=== PATIENT | female | born 1990 | race Caucasian/White ===

== ENCOUNTER → 2019-04-22 13:19 | Outpatient (CLI) | payer BC, SELFPAY ==
--- NOTE | ~2019-04-22 | US_ITS ---
EXAMINATION: US transvaginal DATE: 04/22/2019 13:40 INDICATION: Right lower quadrant pain. Comparison:No prior studies for comparison. TECHNIQUE: Multiple endovaginal sonographic images of the pelvis performed. FINDINGS: The uterus measures 5.8 x 2.9 x 3.9 cm. The endometrial complex measures 11 mm. The right ovary measures 2.3 x 2 x 2.5 cm and the left ovary measures 3.4 x 2.4 x 2.2 cm. There are small follicles in each ovary. There is free fluid in the left adnexa, physiologic. There are no abnormal masses seen on either side . IMPRESSION: 1. Unremarkable pelvic ultrasound. Reviewed, dictated and finalized at location A. [employer]
== END ==
PROVIDERS: PCP Physician Assistant Medical; Visit Provider Physician Assistant Medical
DX: R10.31 Right lower quadrant pain (principal)
CPT/HCPCS: 76830

== ENCOUNTER → 2019-05-10 12:12 | Outpatient (CLI) | payer BC, SELFPAY ==
--- NOTE | ~2019-05-10 | CT_ITS ---
EXAMINATION: CT abdomen pelvis w con EXAM DATE: 05/10/2019 12:57 INDICATION: Right lower quadrant pain. TECHNIQUE: Spiral CT of the abdomen and pelvis was performed following intravenous injection of 100 m L Omnipaque 350. Axial, coronal and sagittal images were reviewed. The dose-length product (DLP) fo r this examination was 1074.91 mGy-cm. The exposure was tailored according to patient size (auto mA exposure control), and iterative reconstruction (ASIR) was used as additional dose reduction techniqu e. 08/03/2016 FINDINGS: The liver, spleen, adrenal glands and pancreas are unremarkable. There are cholecystectomy clips. Portal and splenic veins are patent. Kidneys enhance symmetrically. There is no hydronephr osis. Uterus and ovaries are small but otherwise unremarkable. The bladder is collapsed at time of imaging limiting evaluation. There is no retroperitoneal or pelvic lymphadenopathy. Intact abdomi nal wall. The appendix is normal. The stomach and small bowel are unremarkable. There is expected amount of c olonic stool. No free intraperitoneal gas. The heart is normal in size. There are no pericardial or pleural effusions. The lung bases are unremarkable. The bones are unremarkable. IMPRESSION: 1. No acute intra-abdominal findings. Reviewed, dictated and finalized at location A. 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
== END ==
PROVIDERS: Visit Provider Family Medicine
DX: R10.31 Right lower quadrant pain (principal)
CPT/HCPCS: 74177; Q9967

== ENCOUNTER 2020-09-18 20:54 | Observation (INO) | payer BC, SELFPAY ==
--- NOTE | ~2020-09-18 | CT_ITS ---
EXAMINATION: CT abdomen pelvis w con DATE: 09/18/2020 23:11 INDICATION: Right lower quadrant abdominal pain TECHNIQUE: Computed tomography (CT) of the abdomen and pelvis was performed with 100 mL Omnipaque-350 intravenous contrast. Automated exposure control and iterative reconstruction technique were employe d. The dose-length product was 1480.94 mGy-cm. COMPARISON: 05/10/2019 FINDINGS: Lung bases are clear. Heart size is normal. No pericardial or pleural effusion. Cholecystectomy clips the gallbladder fossa. Diffuse hepatic steatosis. Spleen, pancreas, bilateral adrenal glands and kid neys are normal. There is mild inflammatory stranding surrounding the retrocecal appendix consistent with acute appendicitis. Bowels are otherwise normal with no obstruction. Bladder, uterus and bilater al adnexa are unremarkable. Small amount of likely physiologic versus reactive free fluid in the cul- de-sac. No abscess or free intraperitoneal gas. No pathologically enlarged abdominal or pelvic lympha denopathy. Bones are unremarkable. IMPRESSION: 1. Acute appendicitis. Dr. Burrows discussed these findings with Dr. Cho at 11:15 PM. Reviewed, dictated and finalized at location A.
[2020-09-18 21:12] VITALS: BP 187/110; PULSE 124; RESP 18; TEMP 37.7; O2SAT 100
--- NOTE | 2020-09-18 22:32 | ED.GENADULT ---
HPI - General Adult General Chief complaint: Abdominal Pain Stated complaint: RLQ abd Pain Time Seen by Provider: 09/18/20 22:08 History of Present Illness HPI narrative: Patient a 30-year-old female presents emerged part with chief complaint of abdominal pain. The patient reports that she started having pain around 6 PM tonight reports that it is sharp. The patient reports has been prior surgical history of her gallbladder being removed. Patient also reports that she has had a hernia surgery. Patient denies vomiting reports that she has chronic diarrhea patient denies dysuria or vaginal discharge. Patient states the pain is worse with movement and improved with rest Related Data Home Medications Medication Instructions Recorded Confirmed adapalene 0.3 % topical gel 1 applic TOPICAL QPM 02/19/19 imipramine HCl 10 mg tablet 50 mg PO BID 02/19/19 mometasone 2 inhalation INHALATION DAILY 02/19/19 mometasone 50 mcg/actuation nasal 2 spray NASAL DAILY 02/19/19 spray esomeprazole magnesium 40 mg 40 mg PO DAILY 05/19/20 capsule,delayed release Allergies Allergy/AdvReac Type Severity Reaction Status Date / Time prednisone Allergy Intermediate Vomiting Verified 04/16/18 22:30 doxycycline Allergy Unknown nausea/ligh Verified 03/10/17 21:20 theaded/swe ating/dizzi ness No Known Allergies Allergy Unknown Verified 09/08/16 12:29 narcotic additives AdvReac Unknown Unknown Uncoded 04/16/18 22:30 Review of Systems Review of Systems: Narrative: A 10 system review of systems was completed on the patient and is negative except for what is stated in the HPI. Nursing and ancillary documentation was reviewed. [facility] Social History Social History Smoking status: Never smoker Alcohol intake: current Substance use: never Gender identity (if verbalized by the patient): Female Spiritual care concerns: No Exam Narrative: Exam Narrative: GENERAL: Well-appearing, well-nourished, and in no acute distress. HEAD: Normocephalic, atraumatic. EYES: PERRLA and EOMI. ENT: Nares clear, no rhinorrhea or epistaxis. Mucous membranes moist. NECK: Supple. CHEST: Clear to auscultation. No respiratory distress. HEART: Regular rate and rhythm. No murmur heard. Normal peripheral pulses. ABDOMEN: Soft, tender to palpation in the right lower quadrant, nondistended, normal active bowel sounds. EXTREMITIES: Normal range of motion. No edema. SKIN: Warm, dry, no rash. NEURO: No focal deficits. Alert and oriented x3. PSYCH: Normal mood and affect. Course Vital Signs Vital signs: Vital Signs Temperature 37.7 C H 09/18/20 21:12 Pulse Rate 124 H 09/18/20 21:12 Respiratory Rate 18 09/18/20 21:12 Blood Pressure 187/110 H 09/18/20 21:12 Pulse Oximetry 100 09/18/20 21:12 Temperature 37.7 C H 09/18/20 21:12 Pulse Rate 75 09/18/20 22:46 Respiratory Rate 20 09/18/20 22:46 Blood Pressure 133/73 09/18/20 22:46 Pulse Oximetry 100 09/18/20 22:46 Medical Decision Making Vital Signs Vital Signs: Vital Signs Temperature 37.7 C H 09/18/20 21:12 Pulse Rate 124 H 09/18/20 21:12 Respiratory Rate 18 09/18/20 21:12 Blood Pressure 187/110 H 09/18/20 21:12 Pulse Oximetry 100 09/18/20 21:12 Temperature 37.7 C H 09/18/20 21:12 Pulse Rate 75 09/18/20 22:46 Respiratory Rate 20 09/18/20 22:46 Blood Pressure 133/73 09/18/20 22:46 Pulse Oximetry 100 09/18/20 22:46 Lab Data Result diagrams: 09/18/20 22:30 09/18/20 22:30 Labs: Lab Results 09/18/20 09/18/20 09/18/20 Range/Units 22:30 22:30 22:30 WBC 13.2 H (4.5-10.0) K/mm3 RBC 4.55 (4.2-5.4) M/mm3 Hgb 11.4 L (12.0-15.0) g/dL Hct 37.3 (37.0-47.0) % MCV 82.0 (80-100) fl MCH 25.1 L (26-34) pg MCHC 30.6 L (32-36) g/dl RDW 15.3 H (11.5-14.5) % Plt Count 322 (150-375) k/mm3 MPV
[2020-09-18 22:42] LABS: Add Urine Microscopic? YES; Appearance Urine Cloudy (Clear); Bacteria Urine Trace /hpf; Bilirubin Urine Negative (Negative); Blood Urine Negative (Negative); Color Urine Yellow (Yellow); Glucose Urine UA Negative (Negative); Ketones Urine Trace mg/dL (Negative); Leukocyte Esterase Ur Negative LEU/UL (Negative); Mucus Urine Rare /lpf; Nitrate Urine Negative (Negative); Protein Urine Negative (Negative); RBC Urine 0-2 /hpf (0-2); Specific Grav Ur 1.019 (1.001-1.035); Squamous Epithelial Cell Urine Many /hpf (Few); Urobilinogen Urine Negative mg/dL (<2.0); WBC Urine 0-3 /hpf
[2020-09-18] MEDS: SODIUM CHLORIDE 0.9% IV 1,000 ML 999 ML IV CONT (22:43)
[2020-09-18] MEDS: ONDANSETRON INJ 4 MG/2 ML VIAL IV PUSH (22:43)
[2020-09-18 22:44] LABS: Basophils Absolute Auto 0.1 K/mm3 (0.0-0.1); Basophils Percent Auto 0.5 % (0.2-1.2); Eosinophils Absolute Auto 0.1 K/mm3 (0-0.3); Eosinophils Percent Auto 0.4 % (0-4.4); Hematocrit 37.3 % (37.0-47.0); Hemoglobin 11.4 g/dL (12.0-15.0); Immature Granulocyte Absolute 0.06 K/mm3 (0.00-0.031); Immature Granulocyte Percent A 0.5 % (0-0.5); Lymphocytes Absolute Auto 1.85 K/mm3 (0.9-3.2); Mean Corpuscular HGB Conc 30.6 g/dl (32-36); Mean Corpuscular Hemoglobin 25.1 pg (26-34); Mean Platelet Volume 10.7 fl (7.4-10.4); Monocytes Absolute Auto 0.7 K/mm3 (0.1-0.6); Monocytes Percent Auto 4.9 % (2.6-8.5); Neutrophils Absolute Auto 10.5 K/mm3 (1.3-6.7); Neutrophils Percent Auto 79.7 % (45.5-73.1); Platelet Count Result 322 k/mm3 (150-375); Red Blood Count 4.55 M/mm3 (4.2-5.4); Red Cell Distribution Width 15.3 % (11.5-14.5); White Blood Count 13.2 K/mm3 (4.5-10.0)
[2020-09-18] MEDS: KETOROLAC 30 MG/ML VIAL (*BKC) IV PUSH (22:44)
[2020-09-18 22:46] VITALS: BP 133/73; PULSE 75; RESP 20; O2SAT 100
[2020-09-18 22:49] LABS: Alanine Aminotransferase 44 U/L (4-35); Albumin Level 4.6 g/dL (3.5-5.1); Alkaline Phosphatase 88 U/L (38-126); Anion Gap 10 mmol/L (8-16); Aspartate Amino Transferase 31 U/L (14-36); Bilirubin,Total 0.5 mg/dL (0.2-1.3); Blood Urea Nitrogen 11 mg/dL (7-17); Calcium 9.8 mg/dL (8.4-10.2); Carbon Dioxide 27 mmol/L (22-30); Chloride 102 mmol/L (98-107); Estimated CRCL calculation 98 ml/min; Estimated Glomerular Filt Rate > 60; Glucose 103 mg/dL (65-110); Lipase 84 U/L (23-300); Potassium 3.8 mmol/L (3.4-5.0); Sodium 139 mmol/L (137-145)
[2020-09-19] VITALS (13 sets, daily range): BP systolic 101–145; BP diastolic 48–82; PULSE 71–98; RESP 16–22; TEMP 36.2–36.6; O2SAT 94–100; BMI 45.3
--- NOTE | 2020-09-19 00:55 | ADMGEN ---
This patient, Sasha Reagan, was admitted to Medical Room 253-01. Patient/family oriented to hospital policies and general routines including ID bracelet, bed and alarms, visiting hours, pain management, procedures, bathroom and other care routines, personal items, smoking policy, room service/diet, and visiting hours. Information on how to activate the Rapid Response Team has been discussed. Patient/Family are encouraged to report perceived risks to care and to ask questions if they do not understand what they are told or what they should do.
[2020-09-19] MEDS: SODIUM CHLORIDE 0.9% IV 1,000 ML 125 ML IV CONT (01:23)
--- NOTE | 2020-09-19 06:27 | PM.IMHP ---
H&P: HPI History of Present Illness Date/Time: 09/19/20 06:27 Patient is a 30-year-old woman who started having abdominal pain last night in the early evening around 530 or 6. The pain was sharp and persistent. She is had a previous cholecystectomy. Patient had an open umbilical hernia repair without mesh by me in September of 2016. I also had performed a laparoscopic cholecystectomy on the patient in the past. She was noted to have right lower quadrant tenderness in the emergency room. [place] [id number]. [place] scan showed evidence of a retrocecal appendix and acute appendicitis. She has been started on IV antibiotics and admitted now for evaluation and further management. Review of her medical records so she has morbid obesity with BMI of 45, chronic asthma, gastroesophageal reflux disease on Nexium, and hypothyroidism. Chief Complaint: right lower quadrant abdominal pain Review of Systems Review of Systems: All systems reviewed & are unremarkable except as noted in HPI and below Constitutional: Constitutional: Reports as per HPI, Denies body ache(s), Denies chills, Denies fever(s) and Denies headache(s) Cardiovascular: Cardiovascular: Denies chest pain and Denies dyspnea Respiratory: Respiratory: Denies cough and Denies dyspnea Gastrointestinal: Gastrointestinal: Reports as per HPI, Reports abdominal pain, Reports diarrhea ( Chronic), Denies nausea and Denies vomiting Neurologic: Denies confusion and Denies headache(s) [facility] Family History Family History Other Unknown family medical history Social History Social History Smoking status: Never smoker Alcohol intake: current Drinks per week: 2 Substance use: never Substance use type: does not use Gender identity (if verbalized by the patient): Female Spiritual care concerns: No Meds Home Medications and Allergies Home Medications Medication Instructions Recorded Confirmed Type mometasone 2 inhalation INHALATION HS 02/19/19 09/19/20 History mometasone 50 mcg/actuation nasal 2 spray NASAL HS 02/19/19 09/19/20 History spray salmeterol 50 mcg/dose blister 1 inhalation INHALATION Q12H 90 02/19/19 09/19/20 Rx powder for inhalation Days #3 each esomeprazole magnesium 40 mg 40 mg PO DAILY 05/19/20 09/19/20 History capsule,delayed release albuterol sulfate 90 mcg/actuation 2 puff INHALATION Q4H PRN #18 gm 08/06/20 09/19/20 Rx aerosol inhaler escitalopram oxalate 20 mg PO DAILY 09/19/20 09/19/20 History ibuprofen 200 mg PO Q6H PRN 09/19/20 09/19/20 History levothyroxine 112 mcg PO HS 09/19/20 09/19/20 History loratadine-pseudoephedrine 1 tablet PO DAILY 09/19/20 09/19/20 History [Claritin-D 24 Hour] magnesium 250 mg PO HS 09/19/20 09/19/20 History Allergies Allergy/AdvReac Type Severity Reaction Status Date / Time prednisone Allergy Intermediate Vomiting Verified 09/19/20 01:33 doxycycline Allergy Unknown nausea/ligh Verified 09/19/20 01:33 theaded/swe ating/dizzi ness narcotic additives AdvReac Unknown Unknown Uncoded 04/16/18 22:30 Vital Signs Vital Signs - 24 hr 09/18/20 21:12 09/18/20 22:46 09/19/20 00:40 Temperature 37.7 C H Pulse Rate 124 H 75 98 Respiratory Rate 18 20 16 Blood Pressure 187/110 H 133/73 141/77 H Pulse Oximetry 100 100 99 09/19/20 01:26 09/19/20 05:39 Temperature 36.6 C 36.6 C Pulse Rate 76 78 Respiratory Rate 16 16 Blood Pressure 143/82 H 145/76 H Pulse Oximetry 100 99 Exam Const: General: cooperative, no acute distress, alert and awake Nutritional Appearance: obese Orientation/consciousness: patient oriented x3 HENMT: Head: normocephalic and atraumatic Mouth: Yes Normal oral and palatal mucosa present Eyes: Conjunctivae: conjunctivae normal Pupils: Equal, round and reactive pupils present EOM: EOMs intact bilaterally Neck: Neck: normal visual
--- NOTE | 2020-09-19 07:40 | WPDHPUPDATE1 ---
History and Physical Update Update Date/Time: 09/19/20 07:40 History and Physical has been reviewed, including an updated exam of the patient. There are NO changes in the patient's condition. Risks, benefits, and alternatives have been discussed and questions answered. Patient agrees to proceed with procedure.
--- NOTE | 2020-09-19 08:12 | WPDANESEPPF ---
Anes - Initial Pre Proc Eval Procedure: Operation Date: 09/19/20 10:00 Proposed Procedures p Laparoscopic Appendectomy - Rogelio Candelaria MD Date/Time: 09/19/20 08:12 Surgeon: Rogelio Candelaria MD Pre Op Diagnosis: Acute appendicitis Patient Data Age: 30 Gender: F Height: 1.65 m Weight: 123.8 kg Last Vital Signs Temp 36.6 C 09/19/20 05:39 Pulse 78 09/19/20 05:39 Resp 16 09/19/20 05:39 BP 145/76 H 09/19/20 05:39 Pulse Ox 99 09/19/20 05:39 Allergies Allergy/AdvReac Type Severity Reaction Status Date / Time prednisone Allergy Intermediate Vomiting Verified 09/19/20 01:33 doxycycline Allergy Unknown nausea/ligh Verified 09/19/20 01:33 theaded/swe ating/dizzi ness narcotic additives AdvReac Unknown Unknown Uncoded 04/16/18 22:30 Home Medications Medication Instructions Recorded Confirmed Type mometasone 2 inhalation INHALATION HS 02/19/19 09/19/20 History mometasone 50 mcg/actuation nasal 2 spray NASAL HS 02/19/19 09/19/20 History spray salmeterol 50 mcg/dose blister 1 inhalation INHALATION Q12H 90 02/19/19 09/19/20 Rx powder for inhalation Days #3 each esomeprazole magnesium 40 mg 40 mg PO DAILY 05/19/20 09/19/20 History capsule,delayed release albuterol sulfate 90 mcg/actuation 2 puff INHALATION Q4H PRN #18 gm 08/06/20 09/19/20 Rx aerosol inhaler escitalopram oxalate 20 mg PO DAILY 09/19/20 09/19/20 History ibuprofen 200 mg PO Q6H PRN 09/19/20 09/19/20 History levothyroxine 112 mcg PO HS 09/19/20 09/19/20 History loratadine-pseudoephedrine 1 tablet PO DAILY 09/19/20 09/19/20 History [Claritin-D 24 Hour] magnesium 250 mg PO HS 09/19/20 09/19/20 History Laboratory Tests 09/18/20 09/18/20 09/18/20 22:30 22:30 22:30 WBC 13.2 K/mm3 H K/mm3 (4.5-10.0) RBC 4.55 M/mm3 M/mm3 (4.2-5.4) Hgb 11.4 g/dL L g/dL (12.0-15.0) Hct 37.3 % % (37.0-47.0) MCV 82.0 fl fl (80-100) MCH 25.1 pg L pg (26-34) MCHC 30.6 g/dl L g/dl (32-36) RDW 15.3 % H % (11.5-14.5) Plt Count 322 k/mm3 k/mm3 (150-375) MPV 10.7 fl H fl (7.4-10.4) Immature Gran % (Auto) 0.5 % % (0-0.5) Neut % (Auto) 79.7 % H % (45.5-73.1) Lymph % (Auto) 14.0 % L % (18.3-44.2) [place] % (Auto) 4.9 % % (2.6-8.5) Eos % (Auto) 0.4 % % (0-4.4) Baso % (Auto) 0.5 % % (0.2-1.2) Lymph # (Auto) 1.85 K/mm3 K/mm3 (0.9-3.2) [place] # (Auto) 0.7 K/mm3 H K/mm3 (0.1-0.6) Eos # (Auto) 0.1 K/mm3 K/mm3 (0-0.3) Baso # (Auto) 0.1 K/mm3 K/mm3 (0.0-0.1) Abs Immat Gran (auto) 0.06 K/mm3 H K/mm3 (0.00-0.031) Absolute Neuts (auto) 10.5 K/mm3 H K/mm3 (1.3-6.7) Absolute Nucleated RBC 0.0 K/mm3 K/mm3 (0.0-0.012) Nucleated RBC % 0.0 % % (0.0-0.2) Sodium 139 mmol/L mmol/L (137-145) Potassium 3.8 mmol/L mmol/L (3.4-5.0) Chloride 102 mmol/L mmol/L (98-107) Carbon Dioxide 27 mmol/L mmol/L (22-30) Anion Gap 10 mmol/L mmol/L (8-16) BUN 11 mg/dL mg/dL (7-17) Creatinine 1.00 mg/dL mg/dL (0.7-1.0) Estim Creat Clear Calc 98 ml/min ml/min Estimated GFR > 60 (59 - ) Glucose 103 mg/dL mg/dL (65-110) Calcium 9.8 mg/dL mg/dL (8.4-10.2) Total Bilirubin 0.5 mg/dL mg/dL (0.2-1.3) AST 31 U/L U/L (14-36) ALT 44 U/L H U/L (4-35) Alkaline Phosphatase 88 U/L U/L (38-126) Total Protein 8.0 g/dL g/dL (6.3-8.2) Albumin 4.6 g/dL g/dL (3.5-5.1) Lipase 84 U/L U/L (23-300) Urine Color Yellow (Yellow) Urine Appearance Cloudy H (Clear) Urine pH 6.0 (5.0-9.0) Ur Specific [place] 1.019 (1.001-1.035) Urine Protein Negative mg/dL mg/dL
[2020-09-19] MEDS: LACTATED RINGERS 1,000 ML 30 ML IV CONT ×2 (09:00→09:58)
[2020-09-19] MEDS: BUPIVACAINE/EPINEPHRINE 0.5% 30 ML VIAL INFILTRATE (09:39)
--- NOTE | 2020-09-19 09:56 | P.OP_ITS ---
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 The pain was persistent and sharp. She went to the emergency room where evaluation showed evidence of acute appendicitis. She is taken to surgery now for laparoscopic appendectomy. Findings Acute non perforated appendicitis Description of Procedure patient was taken to surgery and general anesthesia was introduced. The abdomen was prepped and draped. Trocars were placed in the usual fashion using 0.5% Marcaine with epinephrine and applied Medical optical trocars. A 5 mm camera was used. After insufflation, the patient was placed in Trendelenburg with the right side elevated. The appendix was found fairly easily. It was elevated anteriorly and the mesoappendix exposed. Dissection in the mesoappendix was carried out. The appendiceal artery was dissected and then thoroughly cauterized and divided. Rest of the mesoappendix was divided in the base of the appendix was skeletonized. A Vicryl endoloop was used to ligate the appendix at its base. The appendix was then amputated just above the ligature and the mucosa of the appendiceal stump was cauterized. The appendix was immediately placed in an Endo-Catch bag and retrieved through the 10 11 left lower quadrant trocar site. The trocar was then replaced. We reviewed the areas of dissection in the right lower quadrant. All looked good with no evidence of bleeding or other problems. We evacuated CO2 and removed the trocar sleeves. Skin wounds were closed with subcuticular 4 O Monocryl skin suture. Wounds were dressed with Exofin surgical adhesive. Sponge and needle counts were correct x2. Estimated Blood Loss 5 Urine Output 400 Drains No Packing No Pathology yes ( Acute non perforated appendicitis) Complications None Condition stable Disposition PACU
--- NOTE | 2020-09-19 10:06 | PM.DS ---
DS: Admitting Diagnosis Admitting Diagnosis Admitting Diagnosis: acute appendicitis DS: Discharge Diagnosis Discharge Diagnosis (1) Acute appendicitis: Qualifiers: Acute appendicitis type: unspecified acute appendicitis type Qualified Code(s): K35.80 - Unspecified acute appendicitis Code(s): K35.80 - Unspecified acute appendicitis Status: Acute DS: Summary Hospital Course Hospital Course: patient developed right lower quadrant abdominal pain night before last. She came to the emergency room and was evaluated. She was noted to have an elevated white count and tenderness in the right lower quadrant. CT scan showed evidence of acute appendicitis. She was taken to surgery on 09/19/2020 and laparoscopic appendectomy was performed. Appendix appeared to have acute non perforated appendicitis. Surgery went well and patient was able to be discharged after period of observation. Status at Discharge Functional status at discharge: independent ambulation Overall status at discharge: patient is progressing back to baseline Time Spent with Patient Time attestation: Total time spent providing and/or coordinating discharge services: DS: Data Data Completed and Pending Pending studies at discharge: Pending at discharge 09/19/20 09:41 Surgical [PTH] Routine Labs on day of discharge: Labs from last 24 hours 09/18/20 09/18/20 09/18/20 22:30 22:30 22:30 WBC 13.2 H RBC 4.55 Hgb 11.4 L Hct 37.3 MCV 82.0 MCH 25.1 L MCHC 30.6 L RDW 15.3 H Plt Count 322 MPV 10.7 H Immature Gran % (Auto) 0.5 Neut % (Auto) 79.7 H Lymph % (Auto) 14.0 L [place] % (Auto) 4.9 Eos % (Auto) 0.4 Baso % (Auto) 0.5 Lymph # (Auto) 1.85 [place] # (Auto) 0.7 H Eos # (Auto) 0.1 Baso # (Auto) 0.1 Abs Immat Gran (auto) 0.06 H Absolute Neuts (auto) 10.5 H Absolute Nucleated RBC 0.0 Nucleated RBC % 0.0 Sodium 139 Potassium 3.8 Chloride 102 Carbon Dioxide 27 Anion Gap 10 BUN 11 Creatinine 1.00 Estim Creat Clear Calc 98 Estimated GFR > 60 Glucose 103 Calcium 9.8 Total Bilirubin 0.5 AST 31 ALT 44 H Alkaline Phosphatase 88 Total Protein 8.0 Albumin 4.6 Lipase 84 Urine Color Yellow Urine Appearance Cloudy H Urine pH 6.0 Ur Specific [place] 1.019 Urine Protein Negative Urine Glucose (UA) Negative Urine Ketones Trace Ur Blood (Man) Negative Urine Nitrate Negative Urine Bilirubin Negative Urine Urobilinogen Negative Leukocyte Esterase Rfl Negative Urine RBC 0-2 Urine WBC 0-3 Ur Squamous Epith Cells Many H Urine Bacteria Trace Urine Mucus Rare Discharge Plan Discharge Attending physician on discharge: Rogelio Candelaria Discharging Clinician: Rogelio Candelaria Anticipated Discharge Date/Time: 09/19/20 16:00 Patient Disposition: Home, Self-Care Activity: may shower, no straining and as tolerated Diet: as tolerated and regular Wound Care Instructions: incision open to air Discharge Instructions: Remove the Scopolamine patch that was placed behind your ear in 72 hours or less. Wash your hands after touching.1. May shower the day after surgery over incisions. 2. Call office for: -Wound increasingly painful or bleeding -Vomiting -Fever of greater than 101 degrees 3. Expect some blood on dressing and old blood on skin. 4. If no bowel movement for three days, take 1 oz. (30 ml) Milk of Magnesia, if no results, take Fleets enema. 5. No heavy lifting > 15-20 pounds for 2 weeks. 6. No driving for 3 days or while taking narcotic pain medications. 7. Up walking 10-30 minutes three times per day. 8. Resume previous home medications. 9. Follow-up 10-14 days in office for wound check or as previously scheduled. 10. Oral pain medications prescripti
[2020-09-19] MEDS: ESCITALOPRAM OXALATE 10 MG TABLET 20 MG PO (11:18)
[2020-09-19] MEDS: PANTOPRAZOLE 40 MG TABLET PO (11:19)
[2020-09-19] MEDS: LACTATED RINGERS 1,000 ML 100 ML IV CONT (11:23)
[2020-09-19] MEDS: LORATADINE/PSEUDOEPHEDRINE (*CRX) 10/240 MG TABLET ER 24 HR 1 TAB PO (11:23)
== END 2020-09-19 15:00 | disposition home or self-care (01) ==
LOC: ANHED 23:24 → ANH2MED 23:37
PROVIDERS: Admitting Provider Surgery; Emergency Provider Emergency Medicine; PCP Family Medicine; Visit Provider Surgery
PROC: 0DTJ4ZZ Resection of Appendix, Percutaneous Endoscopic Approach (ICD-10-PCS; CPT 44970; principal; 2020-09-19 10:00)
DX: C18.1 Malignant neoplasm of appendix (principal); K35.30 Acute appendicitis with localized peritonitis, without perforation or gangrene; J45.909 Unspecified asthma, uncomplicated; E03.9 Hypothyroidism, unspecified; K21.9 Gastro-esophageal reflux disease without esophagitis; F41.8 Other specified anxiety disorders; E66.01 Morbid (severe) obesity due to excess calories; Z68.42 Body mass index [BMI] 45.0-49.9, adult; Z79.51 Long term (current) use of inhaled steroids
CPT/HCPCS: 44970; 36415; 74177; 80053; 81001; 81025; 83690; 85025; 88304; 88342; 96361; 96365; 96366; 96375; 99285; A9270; G0378; J1885; J2250; J2405; J2543; J3010; J7030; J7120; Q9967

== ENCOUNTER 2020-11-27 10:26 | Outpatient (CLI) | payer BC, SELFPAY ==
--- NOTE | 2020-11-27 10:30 | ECG_ITS ---
Measurements Intervals [place] Rate: 83 P: 19 OK: 145 QRS: 37 QRSD: 85 T: 38 QT: 330 QTc: 389 Interpretive Statements SINUS RHYTHM BASELINE ARTIFACT- I, II, III, AVR, AVL, AVF NORMAL ECG Electronically Signed On 11-27-2020 10:50:33 CDT by Adis Corey D.O.
[2020-11-27 10:53] LABS: Hematocrit 41.2 % (37.0-47.0); Hemoglobin 13.1 g/dL (12.0-15.0)
== END 2020-11-27 10:27 | disposition home or self-care (01) ==
LOC: ANHSURGERY 10:29
PROVIDERS: Anesthesiology; PCP Family Medicine; Visit Provider Surgery
DX: Z01.818 Encounter for other preprocedural examination (principal); D3A.8 Other benign neuroendocrine tumors; D64.9 Anemia, unspecified
CPT/HCPCS: 36415; 85014; 85018; 86850; 86900; 86901; 93005

== ENCOUNTER 2020-12-02 11:43 | Inpatient (IN) | payer BC, SELFPAY ==
[2020-10-28 08:27] VITALS: BMI 47.2
[2020-11-24 12:03] VITALS: BMI 44.6
--- NOTE | 2020-11-30 17:02 | PM.IMHP ---
H&P: HPI History of Present Illness Date/Time: 11/30/20 17:02 Sasha Reagan is a 30 year old female who presented with acute appendicitis on September 18, 2020. She underwent laparoscopic appendectomy on 09/19/2020. 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 The tumor had focal involvement of the visceral peritoneal surface. The margins were negative. The neoplastic cells invaded the mesoappendix and focally extend to the serosal margin. The tumor is a T4 NX MX tumor. This case was reviewed at the tumor board. Plans were to proceed with hand access laparoscopic right colectomy. This surgery has been somewhat delayed due to the high census and COVID pandemic. Patient is however taken to surgery on 12/02/2020 for hand access laparoscopic right colectomy. 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 Review of Systems Review of Systems: All systems reviewed & are unremarkable except as noted in HPI and below Constitutional: Constitutional: Denies chills and Denies fever(s) Cardiovascular: Cardiovascular: Denies chest pain, Denies diaphoresis, Denies dyspnea and Denies paroxysmal nocturnal dyspnea Respiratory: Respiratory: Denies chest congestion, Denies cough and Denies dyspnea Integumentary/Breasts: Skin/Breast: Denies lesions and Denies rash PMFSH Past Medical History Medical History Anxiety associated with depression Encounter for surgical aftercare following surgery on the digestive system HTN (hypertension) Hypothyroid Surgical History Surgical History History of appendectomy 7.16.21 Family History Family History Other Unknown family medical history Social History Social History Smoking status: Never smoker Alcohol intake: current Drinks per week: 2 Substance use: never Substance use type: does not use Gender identity (if verbalized by the patient): Female Spiritual care concerns: No Meds Home Medications and Allergies Home Medications Medication Instructions Recorded Confirmed Type mometasone 2 inhalation INHALATION PRN PRN 02/19/19 11/24/20 History mometasone 50 mcg/actuation nasal 2 spray NASAL PRN PRN 02/19/19 11/24/20 History spray esomeprazole magnesium 40 mg 40 mg PO DAILY 05/19/20 11/24/20 History capsule,delayed release albuterol sulfate 90 mcg/actuation 2 puff INHALATION Q4H PRN #18 gm 08/06/20 11/24/20 Rx aerosol inhaler escitalopram oxalate 20 mg PO DAILY 09/19/20 11/24/20 History levothyroxine 112 mcg PO HS 09/19/20 11/24/20 History loratadine-pseudoephedrine 1 tablet PO DAILY 09/19/20 11/24/20 History [Claritin-D 24 Hour] magnesium 250 mg PO HS 09/19/20 11/24/20 History acetaminophen 325 mg tablet 325 mg PO Q6H PRN 10/05/20 11/24/20 History Serevent Diskus 1 inhalation INHALATION PRN PRN 10/28/20 11/24/20 History ferrous sulfate [Iron (ferrous 325 mg PO HS 10/28/20 11/24/20 History sulfate)] erythromycin 500 mg tablet 1 g PO .COMPLEX #6 tablet 11/30/20 Rx neomycin 500 mg tablet 1 g PO .COMPLEX #6 tablet 11/30/20 Rx Allergies Allergy/AdvReac Type Severity Reaction Status Date / Time prednisone Allergy Intermediate Vomiting Verified 11/24/20 12:01 doxycycline Allergy Unknown Unknown Verified 11/24/20 12:01 narcotic additives AdvReac Unknown Nausea and Uncoded 11/24/20 12:01 Vomiting/dizzy Exam Const: General: comfortable, no acute distress, alert and awake Nutritional Appearance: obese Orientation/consciousness: patient oriented x3 Limitations: no limitations HENMT: Head: normocephalic and atraumatic Mouth: Yes Normal oral and palatal mucosa present Eyes: Conjunctivae: conjunctivae normal Pupils: Equal, round and reactive pupils present EOM: EOMs i
[2020-12-02] VITALS (13 sets, daily range): BP systolic 112–145; BP diastolic 47–84; PULSE 90–116; RESP 17–22; TEMP 36.3–37.2; O2SAT 92–100
--- NOTE | 2020-12-02 06:52 | WPDANESEPPF ---
Anes - Initial Pre Proc Eval Procedure: Operation Date: 12/02/20 07:30 Proposed Procedures p Hand Assisted Laparoscopic Right Colectomy - Rogelio Candelaria MD Date/Time: 12/02/20 06:52 Surgeon: Rogelio Candelaria MD Pre Op Diagnosis: neuroendocrine cancer of appendix Patient Data Age: 30 Gender: F Height: 1.63 m Weight: 117.9 kg Allergies Allergy/AdvReac Type Severity Reaction Status Date / Time doxycycline Allergy Unknown Unknown Verified 12/02/20 06:47 prednisone AdvReac Intermediate Vomiting Verified 12/02/20 06:47 narcotic additives AdvReac Unknown Nausea and Uncoded 12/02/20 06:47 Vomiting/dizzy Home Medications Medication Instructions Recorded Confirmed Type mometasone 2 inhalation INHALATION PRN PRN 02/19/19 11/24/20 History mometasone 50 mcg/actuation nasal 2 spray NASAL PRN PRN 02/19/19 11/24/20 History spray esomeprazole magnesium 40 mg 40 mg PO DAILY 05/19/20 12/02/20 History capsule,delayed release albuterol sulfate 90 mcg/actuation 2 puff INHALATION Q4H PRN #18 gm 08/06/20 12/02/20 Rx aerosol inhaler escitalopram oxalate 20 mg PO DAILY 09/19/20 12/02/20 History levothyroxine 112 mcg PO HS 09/19/20 12/02/20 History loratadine-pseudoephedrine 1 tablet PO DAILY 09/19/20 12/02/20 History [Claritin-D 24 Hour] magnesium 250 mg PO HS 09/19/20 11/24/20 History acetaminophen 325 mg tablet 325 mg PO Q6H PRN 10/05/20 12/02/20 History Serevent Diskus 1 inhalation INHALATION PRN PRN 10/28/20 11/24/20 History ferrous sulfate [Iron (ferrous 325 mg PO HS 10/28/20 12/02/20 History sulfate)] erythromycin 500 mg tablet 1 g PO .COMPLEX #6 tablet 11/30/20 Rx neomycin 500 mg tablet 1 g PO .COMPLEX #6 tablet 11/30/20 Rx Patient hx anesthesia problems: none Family hx anesthesia problems: none Results Review: All pre-operative results and documents have been reviewed as part of the pre-operative evaluation. [facility] Past Medical History Medical History Anxiety associated with depression Encounter for surgical aftercare following surgery on the digestive system HTN (hypertension) Hypothyroid Surgical History Surgical History History of appendectomy 09.18.20 Family History Family History Other Unknown family medical history Social History Social History Smoking status: Never smoker Alcohol intake: current Drinks per week: 2 Substance use: never Substance use type: does not use Living arrangements: with family Gender identity (if verbalized by the patient): Female Spiritual care concerns: No Anes - Eval Final PreProcedure Day of Procedure 12/02/20 06:52 Patient weight: morbidly obese Heart: regular rate and rhythm Lungs: clear to auscultation Airway: Mallampati scale class II Neurological: alert and oriented Last oral intake: >/= 8 hours ASA classification: III Emergent: no Anesthetic plan: proceed Anesthesia type and monitoring: general ETT and standard monitoring Results Review: All pre-operative results and documents have been reviewed as part of the pre-operative evaluation. Informed Consent: The patient's anesthetic plan and its attendant risks and benefits were discussed with the patient/family/POA. Questions were solicited and answers provided to the satisfaction of the patient/family/POA.
[2020-12-02] MEDS: KETOROLAC 15 MG/ML VIAL (*BKC) IV PUSH (07:00)
[2020-12-02] MEDS: ALVIMOPAN 12 MG CAPSULE PO (07:00)
[2020-12-02] MEDS: ACETAMINOPHEN 500 MG TABLET 1000 MG PO (07:00)
[2020-12-02] MEDS: LACTATED RINGERS 1,000 ML 30 ML IV CONT ×2 (07:00→10:34)
[2020-12-02] MEDS: SCOPOLAMINE 1.5 MG PATCH TRANSDERM (07:17)
--- NOTE | 2020-12-02 07:22 | WPDHPUPDATE1 ---
History and Physical Update Update Date/Time: 12/02/20 07:22 History and Physical has been reviewed, including an updated exam of the patient. There are NO changes in the patient's condition. Risks, benefits, and alternatives have been discussed and questions answered. Patient agrees to proceed with procedure.
[2020-12-02] MEDS: metroNIDAZOLE 500 MG/ISO 100ML 500 MG/100 ML BAG 100 MG IVPB (07:27)
[2020-12-02] MEDS: ceFAZolin 3 GM/D5W 100 ML 100 ML IVPB (07:27)
[2020-12-02] MEDS: BUPIVACAINE HCL 0.25% PF 30 ML VIAL INFILTRATE (08:08)
--- NOTE | 2020-12-02 10:33 | W.PM.PROC2 ---
Procedure Note - Detailed Date of Procedure 12/02/20 Pre-op Diagnosis neuroendocrine cancer of appendix Post-op Diagnosis same Procedure Performed Hand access laparoscopic right colectomy with hand-sewn ileotransverse anastomosis Surgeon Rogelio Candelaria MD Director Statistical Programming Araseli De Anda GRAB JACK MAN GRAB JACK MAN Anesthesia general and local (0.5% Marcaine plain) Indications Patient had acute appendicitis last September. Pathology showed a 2 cm neuroendocrine tumor of the appendix. This was a T4 lesion. She is taken to surgery now for right colectomy. Findings No gross evidence of malignancy or metastatic disease was noted. Description of Procedure Patient was taken to surgery and induced into general anesthesia. The abdomen is prepped and draped. The hand access port was drawn on the skin in the upper midline just above the umbilicus. Local was infiltrated in the area of the anticipated incision and in the subcutaneous. Incision was made deepened through the subcutaneous down to the midline fascia. Additional local was infiltrated throughout the fascia. The fascia was then opened the length of the wound. The peritoneum was opened and the peritoneal cavity entered. We placed the Leroy wound guard. The GelPort was then placed. With the hand in the abdomen, I infiltrated additional local for a trocar in the right lower quadrant. Incision was made and a 5 mm trocar was placed. We insufflated through this trocar and then placed the laparoscopic camera. Under direct visualization another 5 mm port in the left mid abdomen was placed again using local anesthetic. The patient was placed in Trendelenburg with the right-side elevated. The distal ileum and cecum were exposed. No sign of malignancy was noted. We scored the base of the mesentery to the distal ileum using the LigaSure. The LigaSure was used for virtually all the dissection and hemostasis throughout the surgery. We then carefully dissected in the retroperitoneum. A medial to lateral mesenteric dissection was carried out just over the right kidney and also above the duodenum. Once this dissection had been carried out to the transverse colon mesentery, I then exposed the mesentery to the distal ileum where the proximal line of resection was planned. The LigaSure was used to open the mesentery to the distal ileum. We divided this mesentery up to the area of the distal ileum planning to take several cm of the terminal ileum with the specimen. We then divided did additional mesentery near its base. The ileocolic artery was found and carefully dissected free from the fatty tissue of the mesentery. The ileocolic artery was then divided near its base with the LigaSure. From there, I dissected and divided the ascending colon mesentery up to the area of the hepatic flexure. The lateral transverse attachments of the ascending colon were then divided using the LigaSure. We proceeded up to the hepatic flexure. The transverse colon mesentery at the hepatic flexure was divided with the LigaSure. There were adhesions of the hepatic colic ligament to the gallbladder fossa. These were divided with the LigaSure as well. The hepatic flexure was further mobilized taking the proximal aspect of the greater omentum with the proximal transverse colon. We continued dissection of the transverse colon mesentery and divided the the right branch of the middle colic artery. From there we stopped insufflation and removed the GelPort leaving the Leroy wound guard in place. I was able to be eviscerated the cecum, distal ileum, all of the right colon and proximal transverse colon as well as nearly all the omentum out the hand access port. I divided a bit more of the proximal transverse colon mesentery up to the area of the transverse colon. I then divided the greater omentum so that the omentum associated with the proximal transverse colon would go with the specimen. The proximal transverse colon was then divided with a TLC 75 stapler. This stap
--- NOTE | 2020-12-02 12:06 | PC.NURSE ---
This patient, Sasha Reagan, was admitted to 2 Medical Room 259-01. Patient/family oriented to hospital policies and general routines including ID bracelet, bed and alarms, visiting hours, pain management, procedures, bathroom and other care routines, personal items, smoking policy, room service/diet, and visiting hours. Information on how to activate the Rapid Response Team has been discussed. Patient/Family are encouraged to report perceived risks to care and to ask questions if they do not understand what they are told or what they should do.
[2020-12-02] MEDS: LACTATED RINGERS 1,000 ML 80 ML IV CONT ×2 (12:15→21:58)
[2020-12-02] MEDS: HYDROcodone/acetaminophen (*CRX) 10-325 MG TABLET 1 TAB PO ×2 (16:58→21:51)
[2020-12-02] MEDS: ENOXAPARIN 30 MG/0.3 ML SYRINGE SUB-Q (21:51)
[2020-12-02] MEDS: LEVOTHYROXINE SODIUM 112 MCG TABLET PO (21:52)
[2020-12-03] MEDS: HYDROcodone/acetaminophen (*CRX) 10-325 MG TABLET 1 TAB PO ×2 (04:03→16:46)
[2020-12-03 04:32] VITALS: BP 130/91; PULSE 103; RESP 20; TEMP 36.1; O2SAT 94
[2020-12-03 05:42] LABS: Hematocrit 35.1 % (37.0-47.0); Mean Corpuscular HGB Conc 31.3 g/dl (32-36); Mean Corpuscular Hemoglobin 27.2 pg (26-34); Mean Corpuscular Volume 86.9 fl (80-100); Mean Platelet Volume 10.5 fl (7.4-10.4); Platelet Count Result 247 k/mm3 (150-375); Red Blood Count 4.04 M/mm3 (4.2-5.4); White Blood Count 8.6 K/mm3 (4.5-10.0)
[2020-12-03 06:02] LABS: Anion Gap 9 mmol/L (8-16); Blood Urea Nitrogen 12 mg/dL (7-17); Calcium 8.8 mg/dL (8.4-10.2); Carbon Dioxide 24 mmol/L (22-30); Chloride 105 mmol/L (98-107); Estimated CRCL calculation 118 ml/min; Estimated Glomerular Filt Rate > 60; Glucose 98 mg/dL (65-110); Potassium 3.9 mmol/L (3.4-5.0); Sodium 138 mmol/L (137-145)
[2020-12-03] MEDS: PANTOPRAZOLE 40 MG TABLET PO (08:41)
[2020-12-03] MEDS: LORATADINE/PSEUDOEPHEDRINE (*CRX) 10/240 MG TABLET ER 24 HR 1 TAB PO (08:48)
[2020-12-03] MEDS: ENOXAPARIN 30 MG/0.3 ML SYRINGE SUB-Q ×2 (09:38→20:18)
[2020-12-03] MEDS: HYDROcodone/acetaminophen (*CRX) 5-325 MG TABLET 1 TAB PO (09:38)
[2020-12-03] MEDS: ESCITALOPRAM OXALATE 10 MG TABLET 20 MG PO (09:38)
[2020-12-03] MEDS: LACTATED RINGERS 1,000 ML 80 ML IV CONT ×2 (09:38→22:15)
--- NOTE | 2020-12-03 10:20 | WPDANESPN ---
Anes - Prog Note Post-Op Date/Time: 12/03/20 10:20 Cardiovascular status: normal Respiratory status: normal Airway patency: baseline Mental status: baseline Post-Op hydration status: normal Vital Signs: Last Vital Signs Temp 36.1 C L 12/03/20 04:32 Pulse 103 H 12/03/20 04:32 Resp 20 12/03/20 04:32 BP 130/91 H 12/03/20 04:32 Pulse Ox 94 12/03/20 04:32 Pain Score (VAS): 0 I/O: Intake & Output 12/02/20 12/03/20 12/03/20 23:59 07:59 15:59 Intake Total 1480 1000 Balance 1480 1000 Laboratory Tests 12/03/20 05:27 12/03/20 05:27 12/03/20 12/03/20 05:27 05:27 WBC 8.6 RBC 4.04 L Hgb 11.0 L Hct 35.1 L MCV 86.9 MCH 27.2 MCHC 31.3 L RDW 17.0 H Plt Count 247 MPV 10.5 H Sodium 138 Potassium 3.9 Chloride 105 Carbon Dioxide 24 Anion Gap 9 BUN 12 Creatinine 0.80 Estim Creat Clear Calc 118 Estimated GFR > 60 Glucose 98 Calcium 8.8 Post-procedural complaints: none Patient Feedback: Patient satisfied with anesthetic care.
[2020-12-03 11:32] VITALS: BMI 46.3
--- NOTE | 2020-12-03 14:25 | PM.PNGS ---
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 Awaiting return of bowel function. Pain well-controlled. Continue clear liquid diet. Start increasing activity and encouraged her to try ambulating this afternoon. Encouraged IS use. Pathology pending. (2) Severe obesity (BMI >= 40): Code(s): E66.01 - Morbid (severe) obesity due to excess calories Status: Chronic (3) Asthma: Code(s): J45.909 - Unspecified asthma, uncomplicated Status: Acute Assessment and Plan: Will continue her albuterol PRN and hold the salmeterol (which is just a longer acting beta2 agonist and she has not needed this in months). Will hold her mometasone as well, which she says she takes PRN but this is an inhaled steroid that should typically be taken scheduled every day. She has not taken this in months, so will hold for now. Additional Plan I have discussed the patient's case and plan of care with Dr. Candelaria. Subjective Subjective Date/Time Seen: 12/03/20 14:25 Post Op day: 1 (RICHARD right colectomy) Patient reports: tolerating liquids well, voiding w/o difficulty, no flatus, no bowel movement and afebrile Interval history: This is a 30 yo F who underwent a laparoscopic appendectomy on 09-19-[address] Candelaria for acute appendicitis and was found to have a well differentiated neuroendocrine tumor on pathology. She presented yesterday for a scheduled RICHARD right colectomy by Dr. Candelaria. She is now seen POD#1 and reports doing well but feeling tired. She has not gotten out of bed yet today. She reports incisional pain that is worse with movement, but seems to be well-controlled with oral analgesics currently. No flatus or BM. No nausea, vomiting, or bloating. Tolerating clears. No other compltaints at this time. Review of Systems Review of Systems: All systems reviewed & are unremarkable except as noted in HPI and below Constitutional: Constitutional: Reports as per HPI, Reports no additional constitutional complaints, Denies chills, Denies fever(s) and Denies headache(s) Cardiovascular: Cardiovascular: Reports no additional cardiovascular complaints, Denies chest pain and Denies leg edema Respiratory: Respiratory: Reports no additional respiratory complaints, Denies cough and Denies dyspnea Gastrointestinal: Gastrointestinal: Reports as per HPI and Reports no additional gastrointestinal complaints Neurologic: Reports system reviewed and no additional complaints, except as documented and Denies focal weakness Exam Const: General: comfortable, no acute distress, alert and awake Orientation/consciousness: patient oriented x3 Resp: Effort & Inspection: normal respiratory effort Auscultation: clear to auscultation bilaterally Cardio: Rate: regular rate Rhythm: regular rhythm GI: Inspection: incision (Abdominal incisions clean and dry, glue intact), obesity and scar (well healed incisions noted from laparoscopic appendectomy) GI Palp: Yes Soft to palpation, Yes Tenderness to palpation present (GI) (incisional), No Guarding due to palpation present (GI) and No Rebound tenderness present Auscultation: Hypoactive bowel sounds present (very hypoactive) Skin: General skin exam: normal color Neuro: General: moves all extremities and no focal motor deficits Extrem: General: no clubbing, cyanosis or edema and no calf tenderness Psych: Mental Status: mental status grossly normal Insight: Good insight present (Psych) Judgement: Good judgement present (Psych) Objective Data Vital Signs Vital Signs: Vital Signs - 24 hr 12/02/20 14:43 12/02/20 21:33 12/03/20 04:32 Temperature 98.2 F 96.9 F L Pulse Rate 110 H 103 H Respiratory Rate 20 20 Blood Pressure 115/55 L 130/91 H Pulse Oximetry 92 93 94 Intake/Output Intake/Output: Intake & Output 11/30/20
[2020-12-03 15:08] VITALS: BP 142/75; PULSE 95; RESP 16; TEMP 36.4; O2SAT 95
[2020-12-03] MEDS: LEVOTHYROXINE SODIUM 112 MCG TABLET PO (16:44)
[2020-12-03] MEDS: ALVIMOPAN 12 MG CAPSULE PO (20:20)
[2020-12-03 20:58] VITALS: BP 132/80; PULSE 118; RESP 20; TEMP 36.3; O2SAT 93
[2020-12-04 04:42] VITALS: BP 139/88; PULSE 117; RESP 20; TEMP 36.4; O2SAT 93
[2020-12-04] MEDS: LEVOTHYROXINE SODIUM 112 MCG TABLET PO (06:06)
[2020-12-04 06:16] LABS: Hematocrit 32.8 % (37.0-47.0); Hemoglobin 10.3 g/dL (12.0-15.0); Mean Corpuscular HGB Conc 31.4 g/dl (32-36); Mean Corpuscular Hemoglobin 26.9 pg (26-34); Mean Corpuscular Volume 85.6 fl (80-100); Mean Platelet Volume 10.5 fl (7.4-10.4); Platelet Count Result 231 k/mm3 (150-375); Red Blood Count 3.83 M/mm3 (4.2-5.4); Red Cell Distribution Width 16.9 % (11.5-14.5); White Blood Count 9.1 K/mm3 (4.5-10.0)
[2020-12-04 06:30] LABS: Anion Gap 8 mmol/L (8-16); Blood Urea Nitrogen 10 mg/dL (7-17); Calcium 8.5 mg/dL (8.4-10.2); Carbon Dioxide 25 mmol/L (22-30); Chloride 103 mmol/L (98-107); Estimated CRCL calculation 118 ml/min; Estimated Glomerular Filt Rate > 60; Glucose 93 mg/dL (65-110); Potassium 3.8 mmol/L (3.4-5.0); Sodium 136 mmol/L (137-145)
[2020-12-04] MEDS: PANTOPRAZOLE 40 MG TABLET PO (08:21)
[2020-12-04] MEDS: LORATADINE/PSEUDOEPHEDRINE (*CRX) 10/240 MG TABLET ER 24 HR 1 TAB PO (08:21)
[2020-12-04] MEDS: ESCITALOPRAM OXALATE 10 MG TABLET 20 MG PO (08:21)
[2020-12-04] MEDS: ALVIMOPAN 12 MG CAPSULE PO ×2 (08:21→20:31)
[2020-12-04] MEDS: HYDROcodone/acetaminophen (*CRX) 5-325 MG TABLET 1 TAB PO ×2 (08:53→20:32)
--- NOTE | 2020-12-04 11:38 | PM.PNGS ---
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 Sixteen lymph nodes examined in no evidence of malignancy. Patient improving nicely. Will advance to solid food. Increase ambulation. Repeat labs again tomorrow. Possibly home tomorrow if continues to improve. Subjective Subjective Date/Time Seen: 12/04/20 11:38 Post Op day: 2 Patient reports: no new complaints, pain is less, tolerating liquids well, bowel movement and afebrile Exam GI: Inspection: non-distended, incision ( dry and healing well) and obesity GI Palp: Yes Soft to palpation, Yes Tenderness to palpation present (GI) ( incisional tenderness only), No Hernia present and No Palpable mass present Auscultation: normoactive bowel sounds Objective Data Vital Signs Vital Signs: Vital Signs - 24 hr 12/03/20 15:08 12/03/20 20:58 12/04/20 04:42 Temperature 36.4 C 36.3 C L 36.4 C Pulse Rate 95 118 H 117 H Respiratory Rate 16 20 20 Blood Pressure 142/75 H 132/80 139/88 Pulse Oximetry 95 93 93 Intake/Output Intake/Output: Intake & Output 12/01/20 12/02/20 12/03/20 12/04/20 23:59 23:59 23:59 23:59 Intake Total 1780 2240 1190 Balance 1780 2240 1190 Meds/Results Medications: Active Medications Generic Name Dose Route Start Last Admin Trade Name Freq PRN Reason Stop Dose Admin Acetaminophen 500 mg 12/02/20 11:43 Acetaminophen 500 Mg Tablet PO Q6H PRN Mild Pain (1-3) or Fever Hydrocodone Bitart/Acetaminophen 1 tab 12/02/20 11:43 12/04/20 08:53 Hydrocodone/Acetaminophen (*Crx) 5-325 Mg Tablet PO 1 tab Q4H PRN Administration Pain Rated 4-6 Hydrocodone Bitart/Acetaminophen 1 tab 12/02/20 11:43 12/03/20 16:46 Hydrocodone/Acetaminophen (*Crx) 10-325 Mg Tablet PO 1 tab Q4H PRN Administration Pain Rated 7-10 Albuterol 2 puff 12/02/20 11:43 Albuterol Sulfate (*Sp) Aerosol 1 Puff INHALATION Q4H PRN bronchospasm Alvimopan 12 mg 12/03/20 21:00 12/04/20 08:21 Alvimopan 12 Mg Capsule PO 12/10/20 09:01 12 mg Q12HR [facility] Administration Enoxaparin Sodium 40 mg 12/04/20 09:00 12/04/20 08:22 Enoxaparin 40 Mg/0.4 Ml Syringe SUB-Q Not Given DAILY [facility] Escitalopram Oxalate 20 mg 12/03/20 09:00 12/04/20 08:21 Escitalopram Oxalate 10 Mg Tablet PO 20 mg DAILY [facility] Administration Ferrous Sulfate 324 mg 12/02/20 21:00 Ferrous Sulfate 324 Mg Tablet PO HS [facility] Fluticasone Propionate 2 spray 12/02/20 12:03 Fluticasone Propionate 0.05% Na Spr 16 Gm Btl (*Bkc) NASAL QAM PRN Allergy Symptoms Levothyroxine Sodium 112 mcg 12/04/20 06:30 12/04/20 06:06 Levothyroxine Sodium 112 Mcg Tablet PO 112 mcg Q24H [facility] Administration Loratadine/Pseudoephedrine Sulfate 1 tab 12/03/20 09:00 12/04/20 08:21 Loratadine/Pseudoephedrine (*Crx) 10/240 Mg Tablet Er 24 Hr PO 1 tab DAILY [facility] Administration Magnesium Gluconate 13.5 mg 12/02/20 21:00 Magnesium 13.5 Mg Tablet (250 Mg Mag Gluconate) BY MOUTH [facility] Morphine Sulfate 2 mg 12/02/20 11:43 Morphine Sulfate (*Crx) 2 Mg/Ml Inj IV PUSH Q2H PRN Pain Rated 4-6 Morphine Sulfate 4 mg 12/02/20 11:43 Morphine Sulfate (*Crx) 4 Mg/Ml Inj IV PUSH Q2H PRN Pain Rated 7-10 Naloxone HCl 0.1 mg 12/02/20 11:43 Naloxone Hcl 0.4 Mg/Ml Vial IV PUSH Q2M PRN Opiate Reversal Ondansetron HCl 4 mg 12/02/20 11:43 Ondansetron Inj 4 Mg/2 Ml Vial IV PUSH Q4H PRN Nausea And Vomiting Pantoprazole Sodium 40 mg 12/03/20 09:00 12/04/20 08:21 Pantoprazole 40 Mg Tablet PO 40 mg QAM LEE Administration Labs Labs: Laboratory Results - last 24 hr 12/04/20 12/04/20 05:23 05:23 WBC 9.1 RBC 3.83 L Hgb 10.3 L Hct 32.8 L MCV 85.6 MCH 26.9 MCHC 31.4 L
[2020-12-04 14:40] VITALS: BP 147/83; PULSE 95; RESP 18; TEMP 36.5; O2SAT 97
[2020-12-04 22:00] VITALS: BP 151/84; PULSE 115; RESP 18; TEMP 37.2; O2SAT 97
[2020-12-05 05:28] LABS: Hematocrit 33.3 % (37.0-47.0); Hemoglobin 10.6 g/dL (12.0-15.0); Mean Corpuscular HGB Conc 31.8 g/dl (32-36); Mean Corpuscular Hemoglobin 27.2 pg (26-34); Mean Corpuscular Volume 85.4 fl (80-100); Mean Platelet Volume 10.4 fl (7.4-10.4); Platelet Count Result 242 k/mm3 (150-375); Red Cell Distribution Width 16.4 % (11.5-14.5); White Blood Count 9.1 K/mm3 (4.5-10.0)
[2020-12-05 05:35] LABS: Anion Gap 11 mmol/L (8-16); Blood Urea Nitrogen 8 mg/dL (7-17); Calcium 8.9 mg/dL (8.4-10.2); Carbon Dioxide 23 mmol/L (22-30); Chloride 103 mmol/L (98-107); Estimated CRCL calculation 133 ml/min; Estimated Glomerular Filt Rate > 60; Glucose 91 mg/dL (65-110); Potassium 3.9 mmol/L (3.4-5.0); Sodium 137 mmol/L (137-145)
[2020-12-05 06:00] VITALS: BP 145/87; PULSE 100; RESP 18; TEMP 36.4; O2SAT 100
[2020-12-05] MEDS: LEVOTHYROXINE SODIUM 112 MCG TABLET PO (06:04)
[2020-12-05] MEDS: ENOXAPARIN 40 MG/0.4 ML SYRINGE SUB-Q (08:56)
[2020-12-05] MEDS: ESCITALOPRAM OXALATE 10 MG TABLET 20 MG PO (08:56)
[2020-12-05] MEDS: LORATADINE/PSEUDOEPHEDRINE (*CRX) 10/240 MG TABLET ER 24 HR 1 TAB PO (08:56)
[2020-12-05] MEDS: PANTOPRAZOLE 40 MG TABLET PO (08:57)
[2020-12-05] MEDS: ALVIMOPAN 12 MG CAPSULE PO (08:57)
--- NOTE | 2020-12-05 11:49 | PM.DS ---
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 On 12/02/2020 she underwent hand assisted laparoscopic right hemicolectomy to ensure complete resection with adequate margins. She was admitted to the hospital postoperatively and started on a liquid diet. Her diet and activity were slowly advanced as tolerated. On 12/04/2020 her diet was advanced to solid diet. She continued to tolerate this and her bowels were moving. Her pain was well controlled and she remained hemodynamically stable and afebrile. On 12/05/2020 she was tolerating her solid diet and was discharged home. Status at Discharge Functional status at discharge: independent ambulation Overall status at discharge: patient is progressing back to baseline Time Spent with Patient Time attestation: Total time spent providing and/or coordinating discharge services: Time spent: Less than 30 minutes Exam GI: Inspection: incision ( Clean/dry / intact with glue) and obesity GI Palp: Yes Soft to palpation and Yes Tenderness to palpation present (GI) ( incisional) Auscultation: normal bowel sounds DS: Data Data Completed and Pending Completed studies during hospitalization: 12/02/20 09:04 Surgical [PTH] Routine Final Diagnosis A. RIGHT COLON WITH TERMINAL ILEUM AND OMENTUM, RIGHT COLECTOMY: - CHANGES CONSISTENT WITH RECENT APPENDECTOMY. - NO EVIDENCE OF RESIDUAL NEOPLASM. - SIXTEEN BENIGN PERICOLONIC LYMPH NODES (0/16). - ILEOCECAL VALVE WITH LIPOHYPERPLASIA. Reviewed and Electronically Signed by: Mathieu Reyes MD 12/03/20 [id number] Labs on day of discharge: Labs from last 24 hours 12/05/20 12/05/20 05:03 05:02 WBC 9.1 RBC 3.90 L Hgb 10.6 L Hct 33.3 L MCV 85.4 MCH 27.2 MCHC 31.8 L RDW 16.4 H Plt Count 242 MPV 10.4 Sodium 137 Potassium 3.9 Chloride 103 Carbon Dioxide 23 Anion Gap 11 BUN 8 Creatinine 0.70 Estim Creat Clear Calc 133 Estimated GFR > 60 Glucose 91 Calcium 8.9 Discharge Plan Discharge Attending physician on discharge: Rogelio Candelaria Discharging Clinician: Anthony De La Cruz Patient Disposition: Home, Self-Care Activity: may shower, no straining and as tolerated Diet: as tolerated and regular Wound Care Instructions: incision open to air Discharge Instructions: Ambulate 3-4 x per day and as tolerated. No lifting over 15-20lbs. May bathe or shower. Stairs are OK. May drive a car in 3 days. Stand Alone Forms: General Discharge Information Follow-up/Referrals: Rogelio Candelaria MD [Physician] - 2 Weeks Discharge Medications: New hydrocodone-acetaminophen 5-325 mg tablet 1 - 2 tablet PO Q6H PRN (Reason: pain) Qty: 14 RF: 0 ketorolac 10 mg tablet 10 mg PO Q6H 4 Days Qty: 16 RF: 0 Continued acetaminophen [Tylenol] 325 mg tablet 325 mg PO Q6H PRN (Reason: Pain) RF: 0 mometasone [Nasonex] 50 mcg/actuation spray,non-aerosol 2 spray NASAL PRN PRN (Reason: Allergy Symptoms) RF: 0 Asmanex Twisthaler 110 mcg/ actuation (30) aerosol powdr breath activated 2 inhalation INHALATION PRN PRN (Reason: SOB) RF: 0 esomeprazole magnesium [Nexium] 40 mg capsule,delayed release(DR/EC) 40 mg PO DAILY RF: 0 loratadine-pseudoephed
== END 2020-12-05 14:55 | disposition home or self-care (01) | DRG 330 ==
LOC: ANH2MED 12-04 11:38
PROVIDERS: Nurse Practitioner Family; Admitting Provider Surgery; PCP Family Medicine; Visit Provider Surgery
PROC: 0DTF4ZZ Resection of Right Large Intestine, Percutaneous Endoscopic Approach (ICD-10-PCS; CPT 44204; principal; 2020-12-02 07:30)
DX: Z68.42 Body mass index [BMI] 45.0-49.9, adult (principal); C7A.020 Malignant carcinoid tumor of the appendix; E66.01 Morbid (severe) obesity due to excess calories; J45.40 Moderate persistent asthma, uncomplicated; F41.8 Other specified anxiety disorders; I10 Essential (primary) hypertension; E03.9 Hypothyroidism, unspecified; Z28.21 Immunization not carried out because of patient refusal
CPT/HCPCS: 36415; 80048; 85027; 88307; 88309; A9270; J0690; J1100; J1650; J1885; J2250; J2405; J2704; J2710; J3010; J7120

== ENCOUNTER → 2021-01-15 03:26 | Outpatient (CLI) | payer BC, SELFPAY ==
[2021-01-15 18:11] LABS: SARS-CoV-2 RNA PCR Negative
== END ==
PROVIDERS: PCP Family Medicine; Visit Provider Family Medicine
DX: R05.9 Cough, unspecified (principal); Z20.822 Contact with and (suspected) exposure to COVID-19
CPT/HCPCS: C9803; U0003; U0005

== ENCOUNTER → 2023-02-03 16:13 | Outpatient (CLI) | payer BC, SELFPAY ==
--- NOTE | ~2023-02-03 | XR_ITS ---
EXAMINATION: XR chest 2V 02/03/2023 16:23 INDICATION: Cough and shortness of breath PROCEDURE: 2 view chest COMPARISON: 11/21/2011 FINDINGS: The lungs are clear. The cardiomediastinal silhouette is within normal limits. There are no pleural effusions. There is no pneumothorax suspected. IMPRESSION: 1: NO ACUTE CARDIOPULMONARY DISEASE. Reviewed, dictated and finalized at location B. 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
== END ==
PROVIDERS: PCP Family Medicine; Visit Provider Emergency Medicine
DX: J45.40 Moderate persistent asthma, uncomplicated (principal); R06.02 Shortness of breath; R05.9 Cough, unspecified
CPT/HCPCS: 71046

== ENCOUNTER 2024-04-03 07:51 | Outpatient (CLI) | payer OTHER, SELFPAY ==
--- NOTE | ~2024-04-03 | US_ITS ---
US abdomen limited 04/03/2024 08:12 Indication: Right lower quadrant pain Procedure: High-resolution Limited ultrasound of the right lower abdomen Comparison: No prior studies for comparison. Findings: No discrete mass or fluid collection is identified. There is shadowing in the right lower a bdomen in the area of concern, likely secondary to bowel gas. Consider correlation with CT pelvis. Impression: 1: Unremarkable limited ultrasound of the right lower abdomen. Reviewed, dictated and finalized at location A. IMPROVEMENT ADVISOR Impression: 1: Unremarkable limited ultrasound of the right lower abdomen.
== END 2024-04-03 07:52 | disposition home or self-care (01) ==
PROVIDERS: PCP Family Medicine; Visit Provider Student in an Organized Health Care Education/Training Program
DX: R10.31 Right lower quadrant pain (principal); G89.29 Other chronic pain
CPT/HCPCS: 76705

== ENCOUNTER 2024-06-18 11:23 | Outpatient (CLI) | payer OTHER, SELFPAY ==
--- NOTE | ~2024-06-18 | CT_ITS ---
CT of the Abdomen and Pelvis: Indication: Palpable lump Technique: 2.5 mm axial scans were obtained through the abdomen and pelvis following intravenous adm inistration of 100 cc of Omnipaque 350. Dose reduction technique was used on this scan by utilizing a utomated exposure control and iterative reconstruction technique. The dose-length product (DLP) was 1 059.71 mGy-cm. COMPARISON: 09/18/2020 Findings: Scans through the lung bases are unremarkable. The liver, spleen, pancreas, adrenals and kidneys are within normal limits. Cholecystectomy clips are present. No evidence of aortic aneurysm. No lymphadenopathy. Ventral hernia superior to the meniscus contains one wall of focal loop of small bowel as well as mes enteric fat. No bowel obstruction or bowel wall thickening. Images through the pelvis were performed. Urinary bladder unremarkable. No adnexal mass seen. Trace a scites. Impression: Supraumbilical ventral hernia contains one wall of focal loop of small bowel and mesenteric fat. No acute abnormality evident. Reviewed, dictated and finalized at location . Impression: Supraumbilical ventral hernia contains one wall of focal loop of small bowel an d mesenteric fat. No acute abnormality evident.
== END 2024-06-18 11:24 | disposition home or self-care (01) ==
PROVIDERS: PCP Family Medicine; Visit Provider Student in an Organized Health Care Education/Training Program
DX: K42.9 Umbilical hernia without obstruction or gangrene (principal)
CPT/HCPCS: 74177; Q9967

== ENCOUNTER 2024-09-04 12:31 | Outpatient (CLI) | payer OTHER, SELFPAY ==
--- OUTSIDE RECORDS SUMMARY | 2024-09-04 12:38 | XMS_ITS | Referral Summary ---
Author Organization [facility] al Address [address] [place] [address] Care Team Providers Care Charge Nurse Name Role Phone Brionna Pierce MD Primary Care Provider + Nigel Cho MD Unavailable [phone] Rogelio Candelaria MD Unavailable [phone] Fernando Serrano MD Unavailable [phone] Macey Smith MD PhD Unavailable [phone] Allergies Active Allergy Reactions Criticality Noted Date Comments Doxycycline Hyclate Nausea & Vomiting High Dizziness, ill feeling Prednisone Nausea only Low 01/26/2021 Medications mometasone (NASONEX) 50 mcg/actuation nasal spray Administer 2 sprays into each nostril daily Active montelukast (SINGULAIR) 10 mg tablet Take 10 mg by mouth nightly Active albuterol HFA (PROVENTIL HFA,VENTOLIN HFA,PROAIR HFA) 90 mcg/actuation inhaler Inhale 2 puffs every 6 (six) hours as needed for wheezing Active salmeteroL (SEREVENT DISKUS) 50 mcg/dose diskus inhaler Inhale 1 puff 2 (two) times a day Active mometasone (ASMANEX) 220 mcg/ actuation (14) inhaler Inhale 2 puffs daily Rinse mouth with water after use. Do not swallow. Active desloratadine (CLARINEX) 5 mg tablet Take 5 mg by mouth daily Active ibuprofen (ADVIL,MOTRIN) 400 mg tablet Take by mouth every 6 (six) hours as needed for pain Active ketotifen (ZADITOR) 0.025 % ophthalmic solutionIndication s:Allergic Conjunctivitis 1 drop 2 (two) times a day Active esomeprazole DR (NexIUM) 40 mg capsule Take 40 mg by mouth daily before breakfast Active escitalopram (LEXAPRO) 20 mg tablet Take 20 mg by mouth daily Active levothyroxine sodium (TIROSINT) 112 mcg capsule Take 112 mcg by mouth early childhood education worker before breakfast Active magnesium oxide (MAG-OX) 250 mg (150.8 mg elemental) tabletIndications: hypomagnesemia 250 mg daily Ac tive clindamycin phos-skin clnsr 19 1 % kit Apply topically Active dapsone (Aczone) 7.5 % gel with pump Apply topically daily Active tretinoin (RETIN-A) 0.025 % gel Apply topically nightly Active [facility] albuterol HFA, PROAIR, (/TV [id number]) inhaler Inhale as needed 1 Active loratadine-pseudoe phedrine (Claritin-D 24 Hour) 10-240 mg per 24 hr tablet Take 1 tablet by mouth daily Active ibuprofen, bulk, 100 % powder Take 2 tablets by mouth daily Active ketotifen (ZADITOR) 0.025 % ophthalmic solution Administer into affected eye(s) Active FeroSuL 325 mg (65 mg iron) tablet Take 1 tablet by mouth daily 1 Active Active Problems Problem Noted Date Diagnosed Date Encounter for procreative genetic counseling Malignant carcinoid tumor of appendix 10/08/2020 Immunizations Immunization Administration Dates Next Due Influenza, Quadrivalent, Rec ombinant, Egg Free, Preservative Free, Intramuscular 12/22/2020 Social History Tobacco Use Types Packs/Day Years Used Date Smoking Tobacco: Never Smokeless Tobacco: Never Tobacco Cessation:Counseling Given: No Personal Safety Answer Date Recorded Getting School Help Needed Not on file 05/06 Comments No Sex and Gender Information Value Date Recorded Sex Assigned at Not on file Legal Sex Female 3:23 AM FRUIT CUTTER Gender Identity Not on file Sexual Orientation Not on file Last Filed Vital Signs Vital Sign Reading Time Taken Comments Blood Pressure 172/106 03/04/2021 11:19 AM FRUIT CUTTER Pulse 97 03/04/2021 11:19 AM FRUIT CUTTER Temperature 36.5 C (97.7 F) 03/04/2021 11:19 AM FRUIT CUTTER Respiratory Rate 16 03/04/2021 11:1 9 AM FRUIT CUTTER Oxygen Saturation 99% 03/04/2021 11: 19 AM FRUIT CUTTER Inhaled Oxygen Concentration - - Weight 121.9 kg (268 lb 12.8 oz) 2020 11:19 AM FRUIT CUTTER Height 164.5 cm (5' 4.76) 03/04/2021 1 1:19 AM FRUIT CUTTER Body Mass Index 45.06 03/04/2021 11:19 AM FRUIT CUTTER Plan of Treatment Not on file Insurance [facility] [place]PO [place] Member Subscriber Plan / Payer (Ef fective 2021-Present) Name:Sasha Reagan Relation to Subscriber:Self Name:Sasha Reagan Payer ID:[id number] (NAIC) Type:HEALTHCARE/EXCHANGE Address: [address] [address] Care Teams Charge Nurse Relationship Specialty Start Date End Date Brionna Pierce MD PCP - General 05/04/19 Nigel Cho MD [address] [place] [id number] Referring Physician Hematology 01/13/21 Rogelio Candelaria MD [address] [place] [address] Referring Physician Vascular Surgery 01/13/21 Fernando Serrano MD [id number] [facility], [facility] [address] [place] [address] Referring Physician Medical Oncology 02/01/21 Macey Smith MD PhD [id number] [facility], [facility] [address] [place] [address] Consulting Physician Medical Oncology 02/01/21
--- OUTSIDE RECORDS SUMMARY | 2024-09-04 12:38 | XMS_ITS | Data Portability ---
Author Organization [facility] Address [address] [place] [address] Assessment Encounter Date Assessment Date Assessment LastModified by Organization Details LastModified Time 08/09/2023 08/09/2023 Annual gynecological exam performed. Patient will come back in a year unless there are new symptoms. [email or web address] Not available 08/08/2023 15:49:17 Plan of Treatment Reminders Order Date Submit Date Provider Last Modified By Organization Details Last Modified Time Details Appointments None record ed. Lab None record ed. Referral None record ed. Procedures None record ed. Surgeries None record ed. Imaging None record ed. Medication Orders None record ed. Patient TargetsNo targets recorded. Patient InstructionsNo instructions recorded. Reason for Referral None Reported. Results Created Date Observation Date Name Description Value Unit Range Abnormal Flag Note LastModifiedBy Organization Detail LastModifiedTime 08/09/19 24 08/09/2023 IMAGE GUIDE D PAP AND HPV REGAR DLESS image guided Pap, HPV regardless of Pap result SEE RESULT S BELOW CASE REPOR T: Cytol ogy Gynec ologi mau Repor t Case: [id number] Autho rodrigo g Provi janet: Mary Escoto, GUNNER Colle cted: 08/08 1143 Order ing Locat ion: [place] Path[facility] Recei stephanie: 08/09 0124 First Scree n: Marie Laws Rescr een: Pippa Barnes ed, CT Speci men: Scree lisa Pap - Image d, Cervi x STATE MENT OF ADEQU ACY: Satis facto ry for evalu ation Trans forma tion zone compo nent absen t The absen ce of an endoc ervic al compo nent was confi rmed by an addit ional scree ner. ----- ----- ----- ----- ----- ----- ----- ----- ----- ----- ----- ----- ----- ----- ----- ----- ----- ---- FINAL DIAGN OSIS: Negat kay for Intra epith elial Lesio francy or Kelsie whalen (NIL) . Elect haley calabrese d by Fantasma quarles, Pippa wesley, CT on 024 at 6:16 PM ----- ----- ----- ----- ----- ----- ----- ----- ----- ----- ----- ----- ----- ----- ----- ----- ----- ---- HPV RESUL TS: HPV mRNA E6/E7 : No HPV mRNA Detec elpidio NOTE: This high risk HPV mRNA assay detec ts fourt een high- risk HPV types (16, 18, 31, 33, 35, 39, 45, 51, 52, 56, 58, 59, 66, 68) witho ut diffe renti ation . COMME NT: This speci men was revie wed by a Cytot echno logis t and/o r Patho logis t (as indic ated in this repor t) after evalu ation using the Thinp rep Imagi ng Syste m. CLINI MAU INFOR MATIO N: Menst rual Statu s: LMP (if appli cable ): Clini mau Histo ry/Pr eviou s Pap: Type of Neopl fanny (if appli cable ): Signi fican t Clini mau Findi ngs: Other Histo ry: Hormo rosemary (if appli cable ): PAP EDUCA MATILDE L NOTE: The Pap Test is a scree lisa test with an inher ent false negat kay rate. Liqui d-bas ed sampl ing july decre ase, but will not elimi sandi, false negat kay resul ts. A negat kay resul t does not precl ude the prese nce and/o r devel opmen t of disea se, since the prese nce of abnor mal cells in the sampl e depen ds on the locat ion of the lesio n and sampl ing techn ique. Chastity nued regul ar scree lisa is the best metho d of cance r preve ntion . If repor elpidio cytol ogic findi ng do not corre late with physi mau and/o r histo rical findi ngs, furth er inves tigat ion is recom mustapha d, as clini rickey reynolds nted. Not Available [facility] (Lab) [address], [place], [address], 08/11/2023 19:18:37 Result Notes None recorded. Problems Name Problem SNOMED Code Status Onset Date Resolution Date Notes Provider Name and Address Organization Details Recorded Time Obesity 534980947 Active 2014 Obesity;Re corded Elsewhere: No Locatio n: [facility] rce: EHR Chroni c: N Practice ID: [id number] Billa ble Time: 03:00:00 PM Not Available [facility] 0 21:26:19 Cytologic finding [id number] Active 2014 Papanicola ou smear of cervix with low grade squamous intraepith elial lesion (LGSIL);Re corded Elsewhere: No Locatio n: [facility] rce: EHR Chroni c: N Practice ID: [id number] Billa ble Time: 03:00:00 PM Not Available [facility] 0 21:26:19 Specializ ed medical examinati on Active 2014 Gynecologi mau Examinatio n;Recorded Elsewhere: No Locatio n: [facility] rce: EHR Chroni c: N Practice ID: [id number] Billa ble Time: 03:00:00 PM Not Available [facility] 0 21:26:19 Screening for malignant neoplasm of cervix Active 2010 Pap Smear;Prac abdulkadir ID: 0001 Not Available [facility] 0 21:26:19 Problem Notes None recorded. Procedures Surgical History Date Name Laterality Status Provider Name and Address Organization Details Recorded Time 021 Date of Last Pap Smear completed Jackie Mejía [facility] 08/09/2023 09:59:02 010 extraction of wisdom tooth [facility]/09/2023 10:00:39 Appendectomy completed Jackie Mejía [facility] 08/09/2023 09:56:07 Cholecystectomy completed Jackiejorge Mejía I [facility] 08/09/2023 09:56:07 hernia repair completed DAMON Moran [address], [place], [address], [facility] 08/09/2023 10:08:02 partial resection of colon completed DAMON Moran [address], [place], [address], [facility] 08/09/2023 10:27:04 Imaging Results None recorded. Procedure Notes None recorded. Medical Equipment None Reported. Allergies No known drug allergies Medications Name Sig Start Date Stop Date Status Note LastModified by Organization Details LastModified Time Singulair 10 mg tablet take 1 tablet by oral route every day in the evening 08/08 completed [facility] ed Elsewher e: Yes Loca tion: Corazon [facility] odify By: luann Aly r DateTime : 04/14/19 15 03:00:00 PM Not Available Not Available Not Available metformin 500 mg tablet take 1 tablet by oral route 2 times every day with morning and evening meals 08/08 completed [facility] ed Elsewher e: Yes Loca tion: [facility] odify By: luann Aly r DateTime : 04/14/19 15 03:00:00 PM Not Available Not Available Not Available ibuprofen 200 mg capsule active Not Available Not Available Not Available prednison e 20 mg tablet TAKE 3 TABLETS BY MOUTH DAILY FOR 5 DAYS 08/07 completed Not Available Not Available Not Available levothyro xine 25 mcg tablet 08/08 completed Not Available Not Available Not Available Nexium 20 mg capsule,d elayed release take 1 capsule by oral route every day at least 1 hour before a meal swallowi ng whole. Do not crush or chew granules . active Prescrib ed Elsewher e: Yes Loca tion: Corazon patel [facility] odify By: luann Encounte r DateTime : 04/14/19 15 03:00:00 PM Not Available Not Available Not Available Serevent Diskus 50 mcg/dose powder for inhalatio n inhale 1 puff by inhalati on route 2 times every day in the morning and evening approxim ately 12 hours apart 08/08 completed Prescrib ed Elsewher e: Yes Loca tion: Corazon patel [facility] odify By: luann Encounte r DateTime : 04/14/19 15 03:00:00 PM Not Available Not Available Not Available amoxicill in 875 mg tablet TAKE 1 TABLET BY MOUTH EVERY 12 HOURS 08/07 completed Not Available Not Available Not Available Claritin- D 12 Hour 5 mg-120 mg tablet,ex tended release take 1 tablet by oral route every 12 hours active Prescrib ed Elsewher e: Yes Loca tion: Corazon patel [facility] odify By: luann Encounte r DateTime : 04/14/19 15 03:00:00 PM Not Available Not Available Not Available Zaditor 0.025 % (0.035 %) eye drops instill 1 drop by ophthalm ic route 2 times every day into affected eye(s) 08/08 completed Prescrib ed Elsewher e: Yes Loca tion: Corazon patel [facility] odify By: luann Encounte r DateTime : 04/14/19 15 03:00:00 PM Not Available Not Available Not Available Nasonex 50 mcg/actua tion [place] spray 2 spray by intranas al route every day in each nostril active Prescrib ed Elsewher e: Yes Loca tion: Corazon patel [facility] odify By: luann Encounte r DateTime : 04/14/19 15 03:00:00 PM Not Available Not Available Not Available imipramin e 10 mg tablet take 2 tablet by oral route 3 times every day 08/08 completed Prescrib ed Elsewher e: Yes Loca tion: Corazon patel [facility] odify By: luann Encounte r DateTime : 04/14/19 15 03:00:00 PM Not Available Not Available Not Available Zoloft 25 mg tablet take 1 tablet by oral route every day 08/08 completed Prescrib ed Elsewher e: Yes Loca tion: Corazon patel [facility] odify By: luann Encounte r DateTime : 04/14/19 15 03:00:00 PM Not Available Not Available Not Available levothyro xine 112 mcg tablet TAKE 1 TABLET BY MOUTH DAILY active Not Available Not Available No t Available escitalop uli 20 mg tablet TAKE 1 TABLET BY MOUTH EVERY DAY active Not Available Not Available No t Available ProAir HFA 90 mcg/actua tion aerosol inhaler inhale 2 puff by inhalati on route every 4 - 6 hours as needed 08/08 completed Prescrib ed Elsewher e: Yes Loca tion: Corazon patel [facility] odify By: luann Piercete r DateTime : 04/14/19 15 03:00:00 PM Not Available Not Available Not Available Asmanex Twisthale r 110 mcg/actua tion(30 doses) breath activated inhalr inhale 2 puff by inhalati on route every day in the evening 08/08 completed Prescrib ed Elsewher e: Yes [facility] By: luann Piercete r DateTime : 04/14/19 15 03:00:00 PM Not Available Not Available Not Available Vitals Date Recorded Body weight Body mass index (BMI) Body height Systolic blood pressure Diastolic blood pressure Provider Name and Address Organization Details Last Updated DateTime 08/09/2023 331940.9 4 g 46.3 kg/m2 162.56 cm 136 mm[Hg] 95 mm[Hg] Jackie Mejía [facility] 4 09:54:44 Social History Question Answer Notes LastModified by Organizat ion Details LastModified Time How Many Years Have You Consumed Alcohol? 10 [email or web address] Information not available 08/09/2023 Are You Blind Or Do You Have Difficulty Seeing? No [email or web address] Information not available 08/09/2023 What Is Your Level Of Caffeine Consumption? Heavy [email or web address] Information not available 08/09/2023 How Much Tobacco Do You Chew? None [email or web address] Information not available 08/09/2023 In The 14 Days Before Symptom Onset, Have You Had Close Contact With A Laboratory-confirme d COVID-19 While That Case Was Ill? No [email or web address] Information n ot available 08/09/2023 In The 14 Days Before Symptom Onset, Have You Had Close Contact With A Person Who Is Under Investigation For COVID-19 While That Person Was Ill? No Information not available 08/09/2023 Have You Been To An Area Known To Be High Risk For COVID-19? No Information not available 08/09/2023 Are You Deaf Or Do You Have Serious Difficulty Hearing? No Information not available 08/09/2023 What Type Of Diet Are You Following? REGULAR [email or web address] Information n ot available 08/09/2023 What Is The Highest Grade Or Level Of School You Have Completed Or The Highest Degree You Have Received? [id number] [email or web address] Information not available 08/09/2023 Are There Any Guns Present In Your Home? No Information not available 08/09/2023 Do You Use Protection During Sex? Usually Information not available 08/09/2023 Do You Use Your Seat Belt Or Car Seat Routinely? Yes [email or web address] Information not available 08/09/2023 Do You Have Smoke And Carbon Monoxide Detectors In Your Home? Yes [email or web address] Information not available 08/09/2023 How Much Tobacco Do You Smoke? No [email or web address] Information not available 08/09/2023 Do You Use Sunscreen Routinely? No [email or web address] Information not available 08/09/2023 Have You Used IV Drugs? No [email or web address] Information not available 08/09/2023 Do You Have Difficulty Walking Or Climbing Stairs? No [email or web address] Information not available 08/09/2023 Sex: Unknown Functional Status Question Answer Note LastModified by Organizat ion Details LastModified Time Do you use any illicit or recreational drugs? No Information not available 08/09/2023 What is your level of alcohol consumption? Occasional Information not available 08/09/2023 Are you able to walk? YESWOREST [email or web address] Information not available 08/09/2023 Are you able to care for yourself? 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 No [email or web address] Information not available 08/09/2023 What is your exercise level? Moderate [email or web address] Information not available 08/09/2023 Mental Status Question Answer Note LastModified by Organization D etails LastModified Time Do you feel stressed (tense, restless, nervous, or anxious, or unable to sleep at night)? [id number] [email or web address] Information not available 08/09/2023 Family History Nothing Reported. Medical History Condition Response Acid Reflux (GERD) Y Cancer Y Headaches Y Thyroid Problems Y Hypertension Y Asthma Y Gynecological History Statement/Question Response Date of LMP 07/27/2023 N Was last menstrual period normal Y STIs/STDs N HPV Vaccine Y Duration of Flow (days) 5 Current Control Method None Frequency of Cycle (Q days) 29 Sexually Active? N None Age of first menstrual cycle 14 Date of Last Pap Smear 08/18/2020 Sexual Problems? N Desired Control Method None LMP Definite N Obstetrics History GPAL:G 0 P 0 0 0 0 Type Value Living 0 Total 0 Past Encounters Encounter ID Performer Location Encounter Start Date Encounter Closed Date Diagnosis/Indication Diagnosis SNOMED-CT Code Diagnosis ICD10 Code Diagnosis Note [id number] DAMON Moran [place] [address] [address] 08/09/2023 09:45:20 08/09/2023 10:45:10 Gynecologic examination 25132407 Z01.419 WWEBC - declinedpa p updatedgc/ ct/trich testing added to papdecline d HIV/Hep B&C/Syphil is testingrou rula labs UTD/PCPBP precaution s reviewed, encouraged PCP f/u It is strongly advised to have an annual flu shot and up can obtain at most pharmacies . If you have not had a TDap shot in the last 10 years you should obtain one as well. Discussed with patient & provided with informatio n regarding Gardisil vaccine to prevent the 4 strains for HPV that cause cervical cancer if under age 26. Encourage safe sexual practices, to use condoms and limit partners if not already in a monogamous relationsh ip. Do monthly self breast exams. BRCA testing is now available for patients with strong genetic history of female cancer. If interested contact the office. Engage in regular exercise. Avoid tobacco and illicit drugs. This lifestyle behavior pattern will lead to less health conditions and longer life span. If BMI greater than 25 dietary consult advised. Patient received above instructio ns, and questions have been answered. If you have any questions please call or respond to this email. Patient was made aware of the patient portal and may obtain a paper copy of today's plan if desired. Health Concerns Section Related Observation LastModified by Organization Detai ls LastModified Time None Recorded Concern Status LastModified by Organization Details LastModified Time None Recorded Advance Directives Directive None Recorded Payers Insurance Date Sequence Insurance Name Policy Number Policy Bolanos Covered Member ID Bolanos Member ID Guarantor Name 08/22/2023 1 [place] [id number] Sasha Reagan [id number] Sasha Reagan 08/22/2023 1 [place] [id number] Sasha Reagan [id number] Sasha Reagan Notes Date Note Type Note Provider Name and Address Organization Details Recorded Time 08/09/2023 text/html Annual GYNReport ed bypatient.Menstrua l cycle:Normal menses Urinary symptoms:No hematuria; No incontinence Vulva:No genital lesion Vagina:Normal vaginal discharge Breast:No breast pain; No breast lump; No nipple discharge Current Contraception:not currently SA Sexual complaints:No sexual complaints; No pain during intercourse; Normal libido Menopausal Symptoms:No menopausal symptoms; Normal vaginal lubrication Psychological symptoms:No depression; No anxiety; No PMDD Preventive measures:Encourage self breast examination; Encourage regular exercise; Encourage no tobacco use; Encourage regular mammograms starting age 42Notes:33yo G0WWEh/o abnormal pap in the past per pt requiring colposcopylast pap 2020 - normal per ptmonthly periodswould like STI testing today medical hx:GERDasthmamigra inesHTNHypothyroid ismmalignant carcinoid tumor of appendix, 2020 DAMON Moran [address], [place], [address], [place] - [facility] 08/09/2023 10:31:58 OBGyn Episode No OBEpisode recorded.
--- OUTSIDE RECORDS SUMMARY | 2024-09-04 12:38 | XMS_ITS | Clinical Summary ---
Author Organization [facility] Address [address] [place] [address] Care Team Providers Care Milling/Polishing Operator Name Role Phone Dalton Pierce MD Primary Care Provider [phone] Source Comments [facility],non-owned Affiliates and Associated Physician Practices is amultiple site organization consisting of ambulatory clinics and hospital sitesin [place], [place], [place] and [place]. This disclosure is being madepursuant to the Care Everywhere program and may not contain all information available regarding this patient. Last updated 17.[facility] Allergies No known active allergies Medications * Be aware that medications may not be up to date on this document. Alwaysverify current medications with the patient. CLARITIN-D 24 HOUR PO Take 1 Tab by mouth daily. Active SINGULAIR PO Take 1 Tab by mouth at bedtime. Active IMIPRAMINE HCL PO Take 1 Tab by mouth at bedtime. Active IBUPROFEN PO Take 2 Tabs by mouth daily. Active ciclesonide (OMNARIS) 50 MCG/ACT SUSP [place] 2 Sprays into each nostril daily. Active Albuterol Sulfate (PROAIR HFA IN) Inhale by mouth as needed. 1 Active Ketotifen Fumarate (ZADITOR OP) by Ophthalmic route. Active esomeprazole (NEXIUM) 40 MG capsule Take 40 mg by mouth daily before breakfast. Active Sertraline HCl (ZOLOFT PO) Take 200 mg by mouth daily. 1 Active amoxicillin (AMOXIL) 500 MG capsule Take 500 mg by mouth daily. 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 Gender Identity Not on file Sexual Orientation Not on file Last Filed Vital Signs Vital Sign Reading Time Taken Comments Blood Pressure 124/58 05/28/2010 9:12 AM CDT Pulse 106 05/28/2010 9:12 AM CDT Temperature - - Respiratory Rate - - Oxygen Saturation - - Inhaled Oxygen Concentration - - Weight 68.8 kg (151 lb 10.8 oz) 05/28/2010 9:12 AM CDT Height 163.8 cm (5' 4.49) 05/28/2010 9:12 AM CD T Body Mass Index 25.64 05/28/2010 9:12 AM CDT Plan of Treatment Health Maintenance Due Date Last Done Comments HIV SCREENING 2007 HEPATITIS C SCREENING 04/07/2010 DTAP/TDAP/TD VACCINES (1 - Tdap) 2011 HEPATITIS B VACCINE (1 of 3 - 19+ 3-dose series) 2011 COVID-19 VACCINE ( - 2023-2 5 season) 2023 DEPRESSION SCREENING 03/06/2024 INFLUENZA VACCINE (Season Ended) 2024 ZOSTER VACCINE (1 of 2) 2042 HIB VACCINE Aged Out No longer eligi ble based on patient's age to complete this topic HPV VACCINE Aged Out No longer eligi ble based on patient's age to complete this topic MENINGOCOCCAL (Group B) VACC INE SHARED DECISION-MAKING Aged Out No longer eligibl e based on patient's age to complete this topic MENINGOCOCCAL GROUPS A/C/Y/W VACCINE Aged Out No longer eligible b ased on patient's age to complete this topic PNEUMOCOCCAL VACCINE Aged Out No long er eligible based on patient's age to complete this topic Insurance JUDY Care Teams Milling/Polishing Operator Relationship Specialty Start Date End Date Dalton Pierce MD [facility] [place] [address] PCP - General 08/07/09
--- OUTSIDE RECORDS SUMMARY | 2024-09-04 12:38 | XMS_ITS | Clinical Summary ---
Author Organization 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 Active magnesium oxide (MAG-OX) 250 mg (150.8 mg elemental) tabletIndications: hypomagnesemia 250 mg daily Ac tive clindamycin phos-skin clnsr 19 1 % kit Apply topically Active dapsone (Aczone) 7.5 % gel with pump Apply topically daily Active tretinoin (RETIN-A) 0.025 % gel Apply topically nightly Active [facility] albuterol HFA, PROAIR, (2019--/TV [id number]) inhaler Inhale as needed 1 Active loratadine-pseudoe [...] ombinant, Egg Free, Preservative Free, Intramuscular 12/22/2020 Medical History Medical History Date Comments Asthma Anxiety Depression Allergies Hypothyroid Damian-Schlatter's disease Pulmonary stenosis Hypoglycemia OCD (obsessive compulsive disorder) GERD (gastroesophageal reflux disease) Social History Tobacco Use Types Packs/Day Years Used Date Smoking Tobacco: Never Smokeless Tobacco: Never Tobacco Cessation:Counseling Given: No Personal Safety Answer Date Recorded Getting School Help Needed Not on file 05/06 Comments No Sex and Gender Information Value Date Recorded Sex Assigned at Not on file Legal Sex Female 3:23 AM COLLATOR Gender Identity Not on file Sexual Orientation Not on file Obstetrics History Last Filed Vital Signs Vital Sign Reading Time Taken Comments Blood Pressure 172/106 03/04/2021 11:19 AM COLLATOR Pulse 97 03/04/2021 11:19 AM COLLATOR Temperature 36.5 C (97.7 F) 03/04/2021 11:19 AM COLLATOR Respiratory Rate 16 03/04/2021 11:1 9 AM COLLATOR Oxygen Saturation 99% 03/04/2021 11: 19 AM COLLATOR Inhaled Oxygen Concentration - - Weight 121.9 kg (268 lb 12.8 oz) 2020 11:19 AM COLLATOR Height 164.5 cm (5' 4.76) 03/04/2021 1 1:19 AM COLLATOR Body Mass Index 45.06 03/04/2021 11:19 AM COLLATOR Plan of Treatment Not on file Insurance [place] Care Teams Environmental Health Aide Relationship Specialty Start Date End Date Brionna Pierce MD PCP - General 05/04/19 Nigel Cho MD [address] [place] [id number] Referring Physician Hematology 01/13/21 Rogelio Candelaria MD [address] [facility] [address] [place], [place] [id number] Referring Physician Vascular Surgery 01/13/21 Fernando Serrano MD [address] [facility], [facility] [address] [place] [address] Referring Physician Medical Oncology 02/01/21 Macey Smith MD PhD [address] [facility] [address] [place] [address] Consulting Physician Medical Oncology 02/01/21
[2024-09-04 12:47] LABS: Hematocrit 40.6 % (37.0-47.0); Hemoglobin 13.0 g/dL (12.0-15.0)
== END 2024-09-04 12:32 | disposition home or self-care (01) ==
LOC: ANHSURGERY 12:35
PROVIDERS: Anesthesiology; PCP Family Medicine; Visit Provider Surgery
DX: Z01.818 Encounter for other preprocedural examination (principal); K43.2 Incisional hernia without obstruction or gangrene; D64.9 Anemia, unspecified
CPT/HCPCS: 36415; 85014; 85018; 86850; 86900; 86901

== ENCOUNTER 2024-09-11 01:05 | Day surgery (SDC) | payer OTHER, SELFPAY ==
--- NOTE | 2024-09-03 10:43 | SUR.PREOP ---
Report to the Outpatient Waiting Room, entrance under the green pavilion located off [facility], at time _0600_ on date _09/11/2024_. Planned Procedure Time: _0730_.? Time changes happen often and if your time is changed the preop area will call you the afternoon before. - You and your visitor will be asked to self-screen and do not enter if you have any COVID symptoms. Please call surgeon if you need to reschedule. - A mask is optional within the hospital at this time. Patients may have clear liquids (water, carbonated beverages, clear teas, apple juice) until 3 hours (0430) prior to surgery with a maximum of 20 ounces. - No food from midnight until time of surgery and no smoking, or chewing tobacco (or any form of nicotine). No chewing gum, candy or mints. Take only the following medications with a SIP of water on the morning of surgery: _ESCITALOPRAM, LEVOTHYROXINE_ DO NOT STOP ANY OF YOUR OTHER PRESCRIPTION MEDICATIONS PRIOR TO SURGERY EXCEPT THE FOLLOWING Hold all vitamins and supplements for 3 days per anesthesiologist. Medications to discontinue per physician _NA_ Date to take last dose_NA_ Please no make-up, nail afghan, hairspray, perfume, deodorant, or body powder the day of surgery.? No jewelry (including any body piercings) or valuables the day of surgery, leave them at home.? Please take a shower or bath the night before, or the morning of, surgery with an antibacterial soap.? Wear comfortable, loose fitting clothing.? - Jewelry must be removed prior to entering the operating room.? Rings and piercings that are not removed may be cut off. - The hospital will not accept responsibility for valuables.? - Please leave all valuables, including medications, at home the day of surgery. If you are going home after surgery, a licensed courtesy car driver must drive you home.? - NO public transportation without another adult if you receive anesthesia. - We recommend that an adult stay with you for 24 hours following discharge. - We also recommend that you do not drive, make important decision, drink alcoholic beverages, or take any drugs that were not prescribed by your health care provider for at least 24 hours after your discharge time. Follow any additional instructions given to you from your surgeon. Telephone instructions given to _CHUNG_and asked if any additional questions and then verbalized understanding. Patient advised to call surgeon office or pre surgery nurse liaison [phone] if any additional questions.
[2024-09-03 10:56] VITALS: BMI 46.4
[2024-09-11] VITALS (21 sets, daily range): BP systolic 115–154; BP diastolic 62–96; PULSE 65–116; RESP 14–20; TEMP 36.2–37.2; O2SAT 94–100; BMI 47.2
--- OUTSIDE RECORDS SUMMARY | 2024-09-11 01:08 | XMS_ITS | Clinical Summary ---
Author Organization [facility] Address [address] [place] [address] Care Team Providers Care Shot Peening Operator Name Role Phone Dalton Pierce MD Primary Care Provider [phone] Source Comments [facility],non-owned Affiliates and Associated Physician Practices is amultiple site organization consisting of ambulatory clinics and hospital sitesin [place], [place], [place] and [place]. This disclosure is being madepursuant to the Care Everywhere program and may not contain all information available regarding this patient. Last updated 17.[facility] Allergies No known active allergies Medications * [...] daily. Active ciclesonide (OMNARIS) 50 MCG/ACT SUSP [place] 2 Sprays into each nostril daily. 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
--- OUTSIDE RECORDS SUMMARY | 2024-09-11 01:08 | XMS_ITS | Clinical Summary ---
Author Organization [facility] al Address [address] [place] [address] Care Team Providers Care Gourmet Coffee Attendant Name Role Phone Brionna Pierce MD Primary Care Provider + Nigel Cho MD Unavailable [phone] Rogelio Candelaria MD Unavailable [phone] Fernando Serrano MD Unavailable [phone] Macey Smith MD PhD Unavailable [phone] Allergies Active Allergy Reactions Criticality Noted Date [...] mcg capsule Take 112 mcg by mouth email campaign specialist before breakfast Active magnesium oxide (MAG-OX) 250 mg (150.8 mg elemental) tabletIndications: hypomagnesemia 250 mg daily Ac tive clindamycin phos-skin clnsr 19 1 % kit Apply topically Active dapsone (Aczone) 7.5 % gel with pump Apply topically daily Active tretinoin (RETIN-A) 0.025 % gel Apply topically nightly Active [facility] albuterol HFA, PROAIR, (2019--/TV [id number]) inhaler Inhale as needed 1 Active loratadine-pseudoe [...] on file Legal Sex Female 3:23 AM 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 FLATBED DRIVER Gender Identity Not on file Sexual Orientation Not on file Obstetrics History Last Filed Vital Signs Vital Sign Reading Time Taken Comments Blood Pressure 172/106 03/04/2021 11:19 AM OTR FLATBED DRIVER Pulse 97 03/04/2021 11:19 AM OTR FLATBED DRIVER Temperature 36.5 C (97.7 F) 03/04/2021 11:19 AM OTR FLATBED DRIVER Respiratory Rate 16 03/04/2021 11:1 9 AM OTR FLATBED DRIVER Oxygen Saturation 99% 03/04/2021 11: 19 AM OTR FLATBED DRIVER Inhaled Oxygen Concentration - - Weight 121.9 kg (268 lb 12.8 oz) 2020 11:19 AM OTR FLATBED DRIVER Height 164.5 cm (5' 4.76) 03/04/2021 1 1:19 AM OTR FLATBED DRIVER Body Mass Index 45.06 03/04/2021 11:19 AM OTR FLATBED DRIVER Plan of Treatment Not on file Insurance [employer] [place] Care Teams Gourmet Coffee Attendant Relationship Specialty Start Date End Date Brionna Pierce MD PCP - General 05/04/19 Nigel Cho MD [address] [place] [id number] Referring Physician Hematology 01/13/21 Rogelio Candelaria MD [address] [facility] [address] [place], [place] [id number] Referring Physician Vascular Surgery 01/13/21 Fernando Serrano MD [address] [facility] MEDICAL ONCOLOGY, [facility] [address] [place] [address] Referring Physician Medical Oncology 02/01/21 Macey Smith MD PhD [address] [facility], [facility] [address] [place] [address] Consulting Physician Medical Oncology 02/01/21
--- OUTSIDE RECORDS SUMMARY | 2024-09-11 01:08 | XMS_ITS | Data Portability ---
Author Organization [facility] Address [address] [place] [address] Assessment Encounter Date Assessment Date Assessment LastModified [...] as clini rickey reynolds nted. Not Available [facility] (Lab) [address] [facility] [facility], [place], [address], 08/11/2023 19:18:37 Result Notes None recorded. Problems Name Problem SNOMED Code Status Onset Date Resolution Date Notes Provider Name and Address Organization Details Recorded Time Obesity 500116391 Active 2014 Obesity;Re corded Elsewhere: No Locatio n: [facility] rce: EHR Chroni c: N Practice ID: 0001 Billa ble Time: 03:00:00 PM Not Available [facility] 0 21:26:19 Cytologic finding [id number] Active 2014 Papanicola ou smear of cervix with low grade squamous intraepith elial lesion (LGSIL);Re corded Elsewhere: No Locatio n: [facility] rce: EHR Chroni c: N Practice ID: [id number] Billa ble Time: 03:00:00 PM Not Available [facility] 0 21:26:19 Specializ ed medical examinati on Active 2014 Gynecologi mau Examinatio n;Recorded Elsewhere: No Locatio n: [facility] rce: EHR Chroni c: N Practice ID: [...] of Last Pap Smear completed Jackie Mejía [facility] 08/09/2023 09:59:02 010 extraction of wisdom tooth [facility] 08/09/2023 10:00:39 Appendectomy completed Jackie Mejía [facility] 08/09/2023 09:56:07 Cholecystectomy completed Jackiejorge Mejía I [facility] 08/09/2023 09:56:07 hernia repair completed DAMON Moran [address], [place], [address], [facility] 08/09/2023 10:08:02 partial resection of colon completed DAMON Moran [address], [place], [address], [facility] 08/09/2023 10:27:04 Imaging Results None recorded. Procedure Notes None recorded. Medical Equipment None Reported. Allergies No known drug allergies Medications Name Sig Start Date Stop Date Status Note LastModified by Organization Details LastModified Time Singulair 10 mg tablet take 1 tablet by oral route every day in the evening 08/08 completed [facility] ed Elsewher e: Yes Loca tion: [facility] odify By: luann Aly r DateTime : 04/14/19 15 03:00:00 PM Not Available Not Available Not Available metformin 500 mg tablet take 1 tablet by oral route 2 times every day with morning and evening meals 08/08 completed [facility] ed Elsewher e: Yes Loca tion: [facility] odify By: luann Aly r DateTime : [...] e: Yes Loca tion: Corazon patel [facility] odify By: luann Encounte r DateTime : 04/14/19 15 03:00:00 PM Not Available Not Available Not Available Serevent Diskus 50 mcg/dose powder for inhalatio n inhale 1 puff by inhalati on route 2 times every day in the morning and evening approxim ately 12 hours apart 08/08 completed Prescrib ed Elsewher e: Yes Loca tion: Corazon patel [facility] odify By: luann Encounte r DateTime [...] e: Yes Loca tion: Corazon patel [facility] odify By: luann Encounte r DateTime : 04/14/19 15 03:00:00 PM Not Available Not Available Not Available Zaditor 0.025 % (0.035 %) eye drops instill 1 drop by ophthalm ic route 2 times every day into affected eye(s) 08/08 completed Prescrib ed Elsewher e: Yes Loca tion: Corazon patel [facility] odify By: luann Encounte r DateTime : 04/14/19 15 03:00:00 PM Not Available Not Available Not Available Nasonex 50 mcg/actua tion [place] spray 2 spray by intranas al route every day in each nostril active Prescrib ed Elsewher e: Yes Loca tion: Corazon patel [facility] odify By: luann Encounte r DateTime : 04/14/19 15 03:00:00 PM Not Available Not Available Not Available imipramin e 10 mg tablet take 2 tablet by oral route 3 times every day 08/08 completed Prescrib ed Elsewher e: Yes Loca tion: Corazon patel [facility] odify By: luann Encounte r DateTime : 04/14/19 15 03:00:00 PM Not Available Not Available Not Available Zoloft 25 mg tablet take 1 tablet by oral route every day 08/08 completed Prescrib ed Elsewher e: Yes Loca tion: Corazon patel [facility] odify By: luann Piercete r DateTime [...] e: Yes Loca tion: Corazon patel [facility] odify By: luann Piercete r DateTime : 04/14/19 15 03:00:00 PM Not Available Not Available Not Available Asmanex Twisthale r 110 mcg/actua tion(30 doses) breath activated inhalr inhale 2 puff by inhalati on route every day in the evening 08/08 completed Prescrib ed Elsewher e: Yes [facility] By: luann Aly r DateTime : 04/14/19 15 03:00:00 PM Not Available Not Available Not Available Vitals Date Recorded Body weight Body mass index (BMI) Body height Systolic And Diastolic Provider Name and Address Organization Details Last Updated DateTime 08/09/2023 448720.94 g 46.3 kg/m2 162.56 cm 136/95 mm[Hg] Jackie Mejía [facility] 08/09/2023 09:54:44 Social History Question Answer Notes LastModified by Organizat ion Details LastModified Time How Many Years Have You Consumed Alcohol? 10 Information not available 08/09/2023 Are You Blind Or Do You Have Difficulty Seeing? No [email or web address] Information not available 08/09/2023 What Is Your Level Of Caffeine Consumption? Heavy [email or web address] Information not available 08/09/2023 How Much Tobacco Do You Chew? None [email or web address] Information not available 08/09/2023 In The 14 Days Before Symptom Onset, Have You Had Close Contact With A Laboratory-confirme d COVID-19 While That Case Was Ill? No [email or web address] Information n ot available 08/09/2023 In The 14 Days Before Symptom Onset, Have You Had Close Contact With A Person Who Is Under Investigation For COVID-19 While That Person Was Ill? No [email or web address] Information not available 08/09/2023 Have You Been To An Area Known To Be High Risk For COVID-19? No [email or web address] Information not available 08/09/2023 Are You Deaf Or Do You Have Serious Difficulty Hearing? No [email or web address] Information not available 08/09/2023 What Type Of Diet Are You Following? REGULAR [email or web address] Information n ot available 08/09/2023 What Is The Highest Grade Or Level Of School You Have Completed Or The Highest Degree You Have Received? SE01815-2 [email or web address] Information not available 08/09/2023 Are There Any Guns Present In Your Home? No [email or web address] Information not available 08/09/2023 Do You Use Protection During Sex? Usually [email or web address] Information not available 08/09/2023 Do You Use Your Seat Belt Or Car Seat Routinely? Yes [email or web address] Information not available 08/09/2023 Do You Have Smoke And Carbon Monoxide Detectors In Your Home? Yes [email or web address] Information not available 08/09/2023 How Much Tobacco Do You Smoke? No [email or web address] Information not available 08/09/2023 Do You Use Sunscreen Routinely? No [email or web address] Information not available 08/09/2023 Have You Used IV Drugs? No [email or web address] Information not available 08/09/2023 Do You Have Difficulty Walking Or Climbing Stairs? No [email or web address] Information not available 08/09/2023 Sex: Unknown Functional Status Question Answer Note LastModified by Organizat ion Details LastModified Time Do you use any illicit or recreational drugs? No Information not available 08/09/2023 What is your level of alcohol consumption? Occasional [email or web address] Information not available 08/09/2023 Are you able to walk? YESWOREST [email or web address] Information not available 08/09/2023 Are you able to care for yourself? 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 No [email or web address] Information not available 08/09/2023 What is your exercise level? Moderate [email or web address] Information not available 08/09/2023 Mental Status Question Answer Note LastModified by Organization D etails LastModified Time Do you feel stressed (tense, restless, nervous, or anxious, or unable to sleep at night)? [id number] [email or web address] Information not available 08/09/2023 Family History Nothing [...] SNOMED-CT Code Diagnosis ICD10 Code Diagnosis Note [id number] DAMON Moran [place] [address] [address] 08/09/2023 09:45:20 08/09/2023 10:45:10 Gynecologic examination 57674609 Z01.419 WWEBC - declinedpa p updatedgc/ ct/trich [...] ID Guarantor Name 08/22/2023 1 [place] [id number] Sasha Reagan [id number] 22 Sasha Reagan 08/22/2023 1 [place] [id number] Sasha Reagan [id number] 22 Sasha Reagan Notes Date Note Type [...] appendix, 2020 DAMON Moran [address], [place], [address], [place] [facility] 08/09/2023 10:31:58 OBGyn Episode No OBEpisode recorded.
--- OUTSIDE RECORDS SUMMARY | 2024-09-11 01:08 | XMS_ITS | Clinical Summary ---
Author Organization [facility] Address [address] [place] [address] Care Team Providers Care Waste Water Operator Name Role Phone Brionna Pierce MD Primary Care Provider [phone] Medications VENTOLIN HFA 90 mcg/actuation inhaler INHALE 2 PUFFS EVERY 4 HOURS NEEDED 1 Active escitalopram oxalate (LEXAPRO) 20 mg tablet TAKE 1 TABLET BY MOUTH EVERY DAY 1 Active levothyroxine 112 mcg tablet Take 112 mcg by mouth daily. 1 Active mometasone (NASONEX) 50 mcg/actuation [place], Non-Aerosol daily. Active mometasone (Asmanex Twisthaler) 220 mcg/ actuation (120) Aerosol Powdr Breath Activated Take 1 Puff by inhalation 2 times daily. Active loratadine-pseu doephedrine (CLARITIN-D) 10-240 mg Extended Release 24 hour tablet Take 1 Tablet by mouth daily. Active ketotifen (Zaditor) 0.025% solution Acti ve esomeprazole (NexIUM) 20 mg Capsule, Delayed Release(E.C.) Take 20 mg by mouth daily before breakfast. Active magnesium oxide 250 mg magnesium Tablet Take by mouth. 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 Social History Tobacco Use Types Packs/Day Years Used Date Smoking Tobacco: Never Smokeless Tobacco: Never Alcohol Use Standard Drinks/Week Comments Yes 0 (1 standard drink = 0.6 oz pur e alcohol) Comments No Sex and Gender Information Value Date Recorded Sex Assigned at Not on file Legal Sex Female 10:56 AM CDT Gender Identity Not on file Sexual Orientation Not on file Last Filed Vital Signs Vital Sign Reading Time Taken Comments Blood Pressure 152/91 10/08/2020 2:48 PM CDT Pulse 86 10/08/2020 2:48 PM CDT Temperature 36.9 C (98.5 F) 10/08/2020 2:48 PM CDT Respiratory Rate - - Oxygen Saturation 98% 10/08/2020 2:48 PM CDT Inhaled Oxygen Concentration - - Weight 124.3 kg (274 lb 1.6 oz) 10/08/2020 2:48 PM CDT Height 164.3 cm (5' 4.7) 10/08/2020 2:48 PM CDT Body Mass Index 46.04 10/08/2020 2:48 PM CDT Plan of Treatment Health Maintenance Due Date Last Done Comments DTAP/TDAP/TD VACCINES (1 - Tdap) 2011 HEPATITIS B VACCINES (1 of 3 - 19+ 3-dose series) 2011 HPV/Cotest (21-29) 2013 CERVICAL CANCER SCREENING 2022 HPV/Cotest (30-65) 2022 PAP SMEAR 2022 INFLUENZA VACCINE (#1) 2024 HPV VACCINES Aged Out No longer eligi ble based on patient's age to complete this topic Insurance BLUE ACCESS/TRUE BLUE PPO Care Teams Waste Water Operator Relationship Specialty Start Date End Date Brionna Pierce MD PCP - General Family Practice 10/08/20
--- OUTSIDE RECORDS SUMMARY | 2024-09-11 01:08 | XMS_ITS | Referral Summary ---
Author Organization [facility] al Address [address] [place] [address] Care Team Providers Care Sports Complex Attendant Name Role Phone Brionna Pierce MD Primary Care Provider + Nigel Cho MD Unavailable [phone] Rogelio Candelaria MD Unavailable [phone] Fernando Serrano MD Unavailable [phone] Macey Smith MD PhD Unavailable [phone] Allergies Active Allergy Reactions Criticality Noted Date [...] mcg capsule Take 112 mcg by mouth enterprise systems architect before breakfast Active magnesium oxide (MAG-OX) 250 mg (150.8 mg elemental) tabletIndications: hypomagnesemia 250 mg daily Ac tive clindamycin phos-skin clnsr 19 1 % kit Apply topically Active dapsone (Aczone) 7.5 % gel with pump Apply topically daily Active tretinoin (RETIN-A) 0.025 % gel Apply topically nightly Active [facility] albuterol HFA, PROAIR, (/TV [id number]) inhaler Inhale as needed 1 Active loratadine-pseudoe [...] on file Legal Sex Female 3:23 AM DIE ATTACHER Gender Identity Not on file Sexual Orientation Not on file Last Filed Vital Signs Vital Sign Reading Time Taken Comments Blood Pressure 172/106 03/04/2021 11:19 AM DIE ATTACHER Pulse 97 03/04/2021 11:19 AM DIE ATTACHER Temperature 36.5 C (97.7 F) 03/04/2021 11:19 AM DIE ATTACHER Respiratory Rate 16 03/04/2021 11:1 9 AM DIE ATTACHER Oxygen Saturation 99% 03/04/2021 11: 19 AM DIE ATTACHER Inhaled Oxygen Concentration - - Weight 121.9 kg (268 lb 12.8 oz) 2020 11:19 AM DIE ATTACHER Height 164.5 cm (5' 4.76) 03/04/2021 1 1:19 AM DIE ATTACHER Body Mass Index 45.06 03/04/2021 11:19 AM DIE ATTACHER Plan of Treatment Not on file Insurance [facility] PPO [place] Care Teams Sports Complex Attendant Relationship Specialty Start Date End Date Brionna Pierce MD PCP - General 05/04/19 Nigel Cho MD [address] [place] [phone] Referring Physician Hematology 01/13/21 Rogelio Candelaria MD [address] [place] [address] [place] [address] Referring Physician Vascular Surgery 01/13/21 Fernando Serrano MD [address] [facility] MEDICAL ONCOLOGY, [facility] [address], [address], [address] [place] [address] Referring Physician Medical Oncology 02/01/21 Macey Smith MD PhD [address] [facility] MEDICAL ONCOLOGY, [facility] [address], [address] [place] [address] Consulting Physician Medical Oncology 02/01/21
[2024-09-11] MEDS: ACETAMINOPHEN 500 MG TABLET 1000 MG PO (06:20)
[2024-09-11] MEDS: KETOROLAC 15 MG/ML VIAL (*BKC) IV PUSH ×2 (06:45→09:28)
[2024-09-11] MEDS: LACTATED RINGERS 1,000 ML 30 ML IV CONT ×3 (06:45→11:47)
--- NOTE | 2024-09-11 07:17 | P.HP_ITS ---
H&P: HPI History of Present Illness Date/Time: 09/11/24 07:17 Chief Complaint: incisional hernia Narrative: 34 yo woman presents for incisional hernia repair. She reports no changes since last seen in office. Review of Systems Review of Systems: All systems reviewed & are unremarkable except as noted in HPI and below Constitutional: Constitutional: Denies chills, Denies fever(s), Denies headache(s) and Denies weight loss Eyes: Eyes: Denies change in vision ENT: Denies dizziness, Denies headache(s), Denies neck mass and Denies throat swelling Cardiovascular: Cardiovascular: Denies chest pain, Denies lightheadedness and Denies dyspnea Respiratory: Respiratory: Denies cough, Denies dyspnea and Denies wheezing Gastrointestinal: Gastrointestinal: Denies abdominal pain, Denies change in bowel habits, Denies nausea and Denies vomiting Genitourinary: Genitourinary: Denies hematuria and Denies dysuria Musculoskeletal: Musculoskeletal: Reports as per HPI Integumentary/Breasts: Skin/Breast: Reports as per HPI Neurologic: Denies dizziness and Denies headache(s) Allergic/Immunologic: Allergic/Immunologic: Denies throat swelling and Denies wheezing [facility] Past Medical History Medical History (Updated 07/12/24 @ 08:16 by Anthony De La Cruz DO) Pulmonary stenosis Headache Gallbladder disorder Asthma Anxiety Anemia Carcinoid tumor of appendix benign. HTN (hypertension) Hypothyroid Anxiety associated with depression Surgical History Surgical History H/O umbilical hernia repair Dr. Candelaria Hx of cholecystectomy Dr. 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 History of appendectomy 09.18.20 Family History Family History Other Unknown family medical history Social History Social History (Updated 07/11/24 @ 14:16 by Steffanie Hernandez MA) Social History: Caffeine-coffee Smoking status: Never smoker Tobacco type: cigars Second hand tobacco smoke exposure: No Additional smoking assessment comments: FORMER SMOKER SOCIALLY NOT ON REGULAR BASIS Alcohol intake: current Alcohol use details: socially Substance use: current Substance use type: marijuana Other substance usage details: smokes socially Last use: occasionally Do You Feel Safe in your Home?: Yes Lack of Transportation: No Lack of Food: Never True Current Housing: I Have Housing Concerned About Future Housing: No Difficulty Paying Gas/Electric Bills: No Difficulty Paying for Meds: No Currently Unemployed: No Education: Master's Degree or Higher Difficulty w/ Childcare or Family Care: No Living arrangements: with family Additional living arrangements comments: parents and sister Gender identity (if verbalized by the patient): Female Spiritual care concerns: No Meds Home Medications and Allergies Home Medications ?Medication ?Instructions ?Recorded ?Confirmed ?Type esomeprazole magnesium 40 mg 40 mg PO DAILY 05/19/20 09/03/24 History capsule,delayed release (Nexium) magnesium 250 mg tablet 250 mg PO HS 09/19/20 09/03/24 History albuterol sulfate 90 mcg/actuation 2 puff inhalation Q4H PRN 04/06/22 09/03/24 Rx aerosol inhaler (ProAir HFA) bronchospasm #18 grams cholecalciferol (vitamin D3) 125 125 mcg PO DAILY #30 caps 08/15/22 09/03/24 Rx mcg (5,000 unit) capsule ferrous sulfate 325 mg (65 mg 325 mg PO DAILY 03/21/23 09/03/24 History iron) tablet (FeroSul) levothyroxine 112 mcg tablet 112 mcg PO DAILY #30 tabs 04/17/24 09/03/24 Rx escitalopram oxalate 20 mg tablet See Rx Instructions .Route 08/23/24 09/03/24 Rx .COMPLEX #90 tabs Allergies Allergy/AdvReac Type Severity Reaction Status Date / Time doxycycline Allergy Unknown Unknown Verified 09/03/24 10:31 narcotic additives AdvReac Unknown Nausea and Uncoded 09/03/24 11:04 Vomiting/dizzy Exam Const: General: no acute distress and alert Orientation/consciousness: patient oriented x3 HENMT: Head: normocephalic and atraumatic Ears: hearing grossly normal bilaterally Face/Nose/Sinus: Normal nares present Mouth: Yes Normal oral and palatal mucosa present Eyes: Periorbital: periorbital findings normal Sclera: sclerae normal EOM: EOMs intact bilaterally Neck: Neck: normal visual inspection, no lymphadenopathy and trachea midline Chest: Chest palpation & inspection: normal inspection of the chest Resp: Effort & Inspection: normal respiratory effort Auscultation: clear to auscultation bilaterally Cardio: Jugular venous distension: no JVD Rate: regular rate Rhythm: regular rhythm Heart sounds: S1 normal heart sound present and S2 normal heart sound present Peripheral pulses: Peripheral pulses 2+ throughout GI: Inspection: normal to inspection GI Palp: Yes Soft to palpation, No Tenderness to palpation present (GI), No Guarding due to palpation present (GI), Yes Hernia present incisional 3-10 cm and No Rebound tenderness present Percussion: Yes normal to percussion Auscultation: normal bowel sounds : General: Yes no CVA tenderness Back/Spine/Pelvis: Back: no CVA tenderness Neuro: General: patient oriented x3, no focal motor deficits and CN's II-XI intact bilaterally Cognition (Neuro): normal cognition Speech: normal speech Motor exam (neuro): 5/5 motor strength present throughout Extrem: General: capillary refill normal and no clubbing, cyanosis or edema Assessment and Plan Assessment and plan (1) Incisional hernia: Qualifiers: Obstruction and gangrene presence: without obstruction or gangrene Qualified Code(s): K43.2 - Incisional hernia without obstruction or gangrene Code(s): K43.2 - Incisional hernia without obstruction or gangrene Status: Acute Assessment and Plan: I have recommended laparoscopic incisional hernia repair with mesh, da Abe assisted. I have discussed the procedure, risks, benefits, and alternatives with the patient. All questions answered. No changes since last seen in office.
--- NOTE | 2024-09-11 07:17 | WPDHPUPDATE1 ---
History and Physical Update Update Date/Time: 09/11/24 07:17 History and Physical has been reviewed, including an updated exam of the patient. There are NO changes in the patient's condition. Risks, benefits, and alternatives have been discussed and questions answered. Patient agrees to proceed with procedure.
--- NOTE | 2024-09-11 07:25 | P.PNAN_ITS ---
Anes - Initial Pre Proc Eval Procedure: Operation Date: 09/11/24 07:30 Proposed Procedures p Laparoscopic Incisional Hernia Repair with Mesh, Davinci Assisted - Anthony De La Cruz DO Date/Time: 09/11/24 07:25 Surgeon: Anthony De La Cruz DO Pre Op Diagnosis: Incisional Hernia Patient Data Age: 34 Gender: F Height: 1.63 m Weight: 122.72 kg Allergies Allergy/AdvReac Type Severity Reaction Status Date / Time doxycycline Allergy Unknown Unknown Verified 09/03/24 10:31 narcotic additives AdvReac Unknown Nausea and Uncoded 09/03/24 11:04 Vomiting/dizzy Home Medications ?Medication ?Instructions ?Recorded ?Confirmed ?Type esomeprazole magnesium 40 mg 40 mg PO DAILY 05/19/20 09/03/24 History capsule,delayed release (Nexium) magnesium 250 mg tablet 250 mg PO HS 09/19/20 09/03/24 History albuterol sulfate 90 mcg/actuation 2 puff inhalation Q4H PRN 04/06/22 09/03/24 Rx aerosol inhaler (ProAir HFA) bronchospasm #18 grams cholecalciferol (vitamin D3) 125 125 mcg PO DAILY #30 caps 08/15/22 09/03/24 Rx mcg (5,000 unit) capsule ferrous sulfate 325 mg (65 mg 325 mg PO DAILY 03/21/23 09/03/24 History iron) tablet (FeroSul) levothyroxine 112 mcg tablet 112 mcg PO DAILY #30 tabs 04/17/24 09/03/24 Rx escitalopram oxalate 20 mg tablet See Rx Instructions .Route 08/23/24 09/03/24 Rx .COMPLEX #90 tabs Patient hx anesthesia problems: none Family hx anesthesia problems: none Results Review: All pre-operative results and documents have been reviewed as part of the pre- operative evaluation. [facility] Past Medical History Medical History (Updated 07/12/24 @ 08:16 by Anthony De La Cruz DO) Pulmonary stenosis Headache Gallbladder disorder Asthma Anxiety Anemia Carcinoid tumor of appendix benign. HTN (hypertension) Hypothyroid Anxiety associated with depression Surgical History Surgical History H/O umbilical hernia repair Dr. Candelaria Hx of cholecystectomy Dr. 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 History of appendectomy 09.18.20 Family History Family History Other Unknown family medical history Social History Social History (Updated 07/11/24 @ 14:16 by Steffanie Hernandez MA) Social History: Caffeine-coffee Smoking status: Never smoker Tobacco type: cigars Second hand tobacco smoke exposure: No Additional smoking assessment comments: FORMER SMOKER SOCIALLY NOT ON REGULAR BASIS Alcohol intake: current Alcohol use details: socially Substance use: current Substance use type: marijuana Other substance usage details: smokes socially Last use: occasionally Do You Feel Safe in your Home?: Yes Lack of Transportation: No Lack of Food: Never True Current Housing: I Have Housing Concerned About Future Housing: No Difficulty Paying Gas/Electric Bills: No Difficulty Paying for Meds: No Currently Unemployed: No Education: Master's Degree or Higher Difficulty w/ Childcare or Family Care: No Living arrangements: with family Additional living arrangements comments: parents and sister Gender identity (if verbalized by the patient): Female Spiritual care concerns: No Anes - Eval Final PreProcedure Day of Procedure 09/11/24 07:25 Patient weight: morbidly obese Heart: regular rate and rhythm Lungs: clear to auscultation Airway: Mallampati scale class II Neurological: alert and oriented Last oral intake: >/= 8 hours ASA classification: III Emergent: no Anesthetic plan: proceed Anesthesia type and monitoring: general ETT and standard monitoring Results Review: All pre-operative results and documents have been reviewed as part of the pre-operative evaluation. Informed Consent: The patient's anesthetic plan and its attendant risks and benefits were discussed with the patient/family/POA. Questions were solicited and answers provided to the satisfaction of the patient/family/POA.
[2024-09-11] MEDS: ceFAZolin 3 GM/D5W 100 ML 100 ML IVPB (07:33)
[2024-09-11 07:37] LABS: BEDSIDEPREGUCG Negative (Negative)
[2024-09-11] MEDS: SCOPOLAMINE 1 MG PATCH 1 PATCH TRANSDERM (07:37)
[2024-09-11] MEDS: BUPIVACAINE/EPINEPHRINE 0.5% 50 ML VIAL 30 ML INFILTRATE (08:25)
--- NOTE | 2024-09-11 09:44 | W.PM.PROC2 ---
Procedure Note - Detailed Date of Procedure 09/11/24 Pre-op Diagnosis Incisional Hernia Post-op Diagnosis Same (5 cm incisional hernia) Procedure Performed Laparoscopic 5 cm incisional hernia repair with mesh, da Abe assisted Surgeon Anthony De La Cruz DO Anesthesia General and Local (0.5% bupivacaine with epinephrine) Indications this is a 34-year-old woman who presents with an upper abdominal bulge that she 1st noticed about 4 months ago. She noticed some pain and discomfort along with this and the bulge would reduce when laying down. She underwent a CT of her abdomen and pelvis which showed evidence of the supraumbilical ventral hernia. This appeared to be located at a scar from a previous hand assisted laparoscopic right hemicolectomy. Discussions were made with the patient about treatment options and decision was made to proceed with robotic assisted laparoscopic incisional hernia repair with mesh. Findings Robotic assisted laparoscopic incisional hernia repair with mesh was performed. The patient was found to have a 5 cm incisional hernia just superior to the umbilicus at her scar from previous hand assisted laparoscopic right hemicolectomy. The hernia was reducible and did not have any adhesions around it. There was some preperitoneal fat and the hernia sac going up into the hernia defect. The preperitoneal fat and hernia sac was excised from around the hernia and fascial edges. The falciform ligament was also taken down far enough cephalad to allow for mesh placement. A robotic intraperitoneal onlay mesh technique was utilized for repair. The fascia was closed with 0 Stratafix running absorbable suture. A Ventralight ST 20 cm x 15 cm mesh was then placed and secured to the abdominal wall. No specimens were obtained for pathology. Description of Procedure Procedure as well as risks, benefits, and alternatives were discussed with the patient. Written consent was obtained and placed in chart prior to procedure. Patient was brought back to surgical suite. She was placed supine on operating table. Time-out was done to confirm patient and procedure. She was then intubated by the anesthesia department. A bump was placed under her left hip, and the bed was flexed slightly to extend the space between her costal margin and iliac crest. Her abdomen was prepped and draped in sterile fashion using chlorhexidine prep. A 5 millimeter incision was made in the left upper quadrant, and a 5 millimeter Optiview trocar was advanced through the abdominal layers under direct visualization. Once inside the abdominal cavity, carbon dioxide insufflation was used to create a pneumoperitoneum. Her abdomen was inspected. An 8 millimeter incision was made in the left lower quadrant, and an 8 millimeter robotic trocar was placed under direct visualization. Another 8 millimeter incision was made in the left lateral abdomen, and an 8 millimeter robotic trocar was placed under direct visualization. 0.5% bupivacaine with epinephrine was infiltrated around each port site. The 5 millimeter port was removed, and an 12 mm robotic trocar was placed under direct visualization. The robotic arms were brought up to the patient's bedside and secured to the ports. The camera and instruments were inserted, and I then moved over to the robotic console and took control of the camera and instruments. After careful thorough inspection of the abdominal cavity, I began my dissection at the hernia. The hernia sac and preperitoneal fat were reduced from hernia defect using scissors with electrocautery. Then took down the falciform ligament as well for about 10 cm cephalad to the hernia defect using scissors with electrocautery. I then measured the hernia size. The hernia measured 5 cm. The fascia was closed using an 0-Stratafix running suture in a vertical fashion. A Ventralight ST 20 cm x 15 cm mesh with Echo 2 positioning device was then placed within the abdominal cavity. This was oriented vertically with the mesh centered on the hernia defect. The mesh was brought up through the center of the suture line of the fascial closure using a granny needle. The mesh was then secured circumferentially to the abdominal wall using 2-0 Stratafix running absorbable suture. The repair was inspected, and one final inspection was made around the abdominal cavity. The 2 positioning device was then removed. The robotic instruments were then removed, and the robotic arms were disengaged from the trocars. The fascia of the 12 mm port site was reapproximated using an 0 Vicryl suture passed with a Henry-Avinash cone. The ports were then removed under direct visualization, the camera was removed, and the pneumoperitoneum was released. The skin of the incisions was then approximated using 4-0 Monocryl subcuticular suture. Exofin glue was then applied on top. The patient was then awakened from anesthesia, extubated, and transferred to recovery. Implants Ventralight ST 20 cm x 15 cm mesh with Echo 2 positioning device Estimated Blood Loss 5 Complications No immediate complications Condition Stable Disposition Same day [facility] Billing Surgery - Charge Forward: Surgery Billing
[2024-09-11] MEDS: fentaNYL CITRATE INJ (*CRX) 100 MCG/2 ML VIAL 25 MCG IV PUSH ×8 (10:00→10:35)
[2024-09-11] MEDS: HYDROmorphone HCL INJ (*CRX) 1 MG/ML SYR 0.5 MG IV PUSH ×6 (10:41→13:15)
--- NOTE | 2024-09-11 12:00 | SUR.PHASEI ---
Patient meets PACU discharge criteria, unit bed unavailable at this time. Patient placed in extended recovery status.
--- NOTE | 2024-09-11 14:53 | ADMGEN ---
This patient, Sasha Reagan, was admitted to [facility] Surg Room 322-02. Patient/family oriented to hospital policies and general routines including ID bracelet, bed and alarms, visiting hours, pain management, procedures, bathroom and other care routines, personal items, smoking policy, room service/diet, and visiting hours. Information on how to activate the Rapid Response Team has been discussed. Patient/Family are encouraged to report perceived risks to care and to ask questions if they do not understand what they are told or what they should do.
[2024-09-11] MEDS: LACTATED RINGERS 1,000 ML 100 ML IV CONT (15:09)
[2024-09-11] MEDS: ACETAMINOPHEN 325 MG TABLET 650 MG PO ×2 (15:09→17:13)
[2024-09-11] MEDS: IBUPROFEN 400 MG TABLET 800 MG PO ×2 (15:09→21:42)
[2024-09-11] MEDS: MAGNESIUM OXIDE 200 MG TABLET PO (21:43)
[2024-09-12] MEDS: ACETAMINOPHEN 325 MG TABLET 650 MG PO ×3 (00:22→12:58)
[2024-09-12 00:53] VITALS: BP 151/93; PULSE 86; RESP 16; TEMP 35.9; O2SAT 96
[2024-09-12 04:42] VITALS: BP 127/89; PULSE 66; RESP 16; TEMP 35.8; O2SAT 95
[2024-09-12] MEDS: IBUPROFEN 400 MG TABLET 800 MG PO ×2 (05:34→12:59)
[2024-09-12] MEDS: LEVOTHYROXINE SODIUM 112 MCG TABLET PO (05:34)
[2024-09-12 06:38] LABS: Hematocrit 37.2 % (37.0-47.0); Hemoglobin 11.6 g/dL (12.0-15.0); Mean Corpuscular HGB Conc 31.2 g/dl (32-36); Mean Corpuscular Hemoglobin 29.4 pg (26-34); Mean Corpuscular Volume 94.2 fl (80-100); Platelet Count Result 225 k/mm3 (150-375); Red Blood Count 3.95 M/mm3 (4.2-5.4); White Blood Count 6.4 K/mm3 (4.5-10.0)
[2024-09-12 06:55] LABS: Anion Gap 5 mmol/L (4-12); Blood Urea Nitrogen 10 mg/dL (7-17); Calcium 8.8 mg/dL (8.4-10.2); Carbon Dioxide 25 mmol/L (22-30); Chloride 105 mmol/L (98-107); Estimated CRCL calculation 104 ml/min; Estimated Glomerular Filt Rate > 60; Glucose 99 mg/dL (65-110); Potassium 3.7 mmol/L (3.4-5.0); Sodium 135 mmol/L (137-145)
--- NOTE | 2024-09-12 07:34 | WPDANESPN ---
Anes - Prog Note Post-Op Date/Time: 09/12/24 07:34 Cardiovascular status: normal Respiratory status: normal Airway patency: baseline Mental status: baseline Post-Op hydration status: normal Vital Signs: Last Vital Signs Temp 35.8 C L 09/12/24 04:42 Pulse 66 09/12/24 04:42 Resp 16 09/12/24 04:42 BP 127/89 09/12/24 04:42 Pulse Ox 95 09/12/24 04:42 O2 Del Method Room Air 09/11/24 21:32 O2 Flow Rate 2 09/11/24 13:30 Pain Score (VAS): 2 I/O: Intake & Output 09/11/24 09/11/24 09/12/24 15:59 23:59 07:59 Intake Total 423 611 7944 Balance 281 065 9101 Laboratory Tests 09/12/24 06:01 09/12/24 06:01 09/11/24 09/12/24 07:34 06:01 WBC 6.4 RBC 3.95 L Hgb 11.6 L Hct 37.2 MCV 94.2 MCH 29.4 MCHC 31.2 L RDW 13.0 Plt Count 225 MPV 10.7 H Sodium 135 L Potassium 3.7 Chloride 105 Carbon Dioxide 25 Anion Gap 5 BUN 10 Creatinine 0.89 Estim Creat Clear Calc 104 Estimated GFR > 60 Glucose 99 Calcium 8.8 POC Urine HCG, Qual Negative Post-procedural complaints: none Patient Feedback: Patient satisfied with anesthetic care.
[2024-09-12 07:51] VITALS: BP 142/94; PULSE 77; RESP 18; TEMP 36.4; O2SAT 95
[2024-09-12] MEDS: ENOXAPARIN 40 MG/0.4 ML SYRINGE SUB-Q (09:36)
[2024-09-12] MEDS: ESCITALOPRAM OXALATE 10 MG TABLET 20 MG PO (09:36)
[2024-09-12] MEDS: PANTOPRAZOLE 40 MG TABLET PO (09:36)
--- NOTE | 2024-09-12 10:52 | P.PNGS_ITS ---
Progress Note: A&P Assessment and Plan (1) Incisional hernia: Qualifiers: Obstruction and gangrene presence: without obstruction or gangrene Qualified Code(s): K43.2 - Incisional hernia without obstruction or gangrene Code(s): K43.2 - Incisional hernia without obstruction or gangrene Status: Acute Assessment and Plan: POD1. Patient is tolerating liquid diet without nausea or vomiting. Abdominal incisional pain as expected. Ambulating without difficulty. * Advance diet as tolerated. If no issues, patient is ok for discharge Plan Discussed patient's case and plan of care with Dr. De La Cruz. Subjective Subjective Date/Time Seen: 09/12/24 10:52 Post Op day: 1 Patient reports: no new complaints, tolerating liquids well, no flatus and no bowel movement Interval history: POD1 s/p laparoscopic 5cm incisional hernia repair with mesh. No acute events overnight. WBC normal. Afebrile. Patient is doing well today. She notes some soreness over incisions. Tolerating clear liquids without nausea or vomiting. Advanced to full liquids this morning. No BM or flatus yet. Ambulating to and from bathroom. Exam GI: GI Palp: Yes Soft to palpation, Yes Tenderness to palpation present (GI) (tenderness over incisions), No Guarding due to palpation present (GI) and No Hernia present Other: Binder in place. Incisions clean and dry with some mild surrounding ecchymosis. No signs of infection or dehiscence. Objective Data Vital Signs Vital Signs: Vital Signs - 24 hr 09/11/24 11:00 09/11/24 11:15 09/11/24 11:30 Temperature Pulse Rate 102 H 97 94 Respiratory Rate 14 14 14 Blood Pressure 132/82 144/70 H 143/92 H Pulse Oximetry 97 97 97 Oxygen Delivery Nasal Cannula Nasal Cannula Room Air Oxygen Flow Rate 2 2 09/11/24 11:45 09/11/24 12:00 09/11/24 12:30 Temperature Pulse Rate 102 H 95 107 H Respiratory Rate 14 14 18 Blood Pressure 144/85 H 133/85 129/83 Pulse Oximetry 97 96 97 Oxygen Delivery Nasal Cannula Nasal Cannula Nasal Cannula Oxygen Flow Rate 2 2 2 09/11/24 12:45 09/11/24 13:00 09/11/24 13:30 Temperature Pulse Rate 103 H 103 H 91 Respiratory Rate 15 14 14 Blood Pressure 144/78 H 143/90 H 131/86 Pulse Oximetry 98 97 98 Oxygen Delivery Nasal Cannula Nasal Cannula Nasal Cannula Oxygen Flow Rate 2 2 2 09/11/24 14:00 09/11/24 14:06 09/11/24 14:21 Temperature 97.6 F 97.7 F Pulse Rate 108 H 65 81 Respiratory Rate 16 16 16 Blood Pressure 137/70 136/86 151/92 H Pulse Oximetry 95 95 97 Oxygen Delivery Room Air Oxygen Flow Rate 09/11/24 14:51 09/11/24 14:51 09/11/24 15:51 Temperature 97.5 F L 97.5 F L Pulse Rate 84 84 Respiratory Rate 18 18 Blood Pressure 151/81 H 151/81 H Pulse Oximetry 98 98 Oxygen Delivery Room Air Oxygen Flow Rate 09/11/24 21:00 09/11/24 21:32 09/12/24 00:53 Temperature 99.0 F 96.6 F L Pulse Rate 99 86 Respiratory Rate 17 16 Blood Pressure 136/62 151/93 H Pulse Oximetry 95 96 Oxygen Delivery Room Air Oxygen Flow Rate 09/12/24 04:42 09/12/24 07:51 Temperature 96.5 F L 97.5 F L Pulse Rate 66 77 Respiratory Rate 16 18 Blood Pressure 127/89 142/94 H Pulse Oximetry 95 95 Oxygen Delivery Oxygen Flow Rate Intake/Output Intake/Output: Intake & Output 09/09/24 09/10/24 09/11/24 09/12/24 23:59 23:59 23:59 23:59 Intake Total 1190 1476 Balance 1190 1476 Meds/Results Medications: Active Medications Generic Name Dose Route Start Last Admin Trade Name Freq PRN Reason Stop Dose Admin Acetaminophen 650 mg 09/11/24 14:06 09/12/24 05:34 Acetaminophen 325 Mg Tablet PO 650 mg Q6HR LEE Administration Albuterol 2 puff 09/11/24 14:06 Albuterol Sulfate (*Sp) Aerosol 1 Puff INHALATION Q4H PRN bronchospasm Diphenhydramine HCl 25 mg 09/11/24 14:06 Diphenhydramine Hcl Inj 50 Mg/Ml Vial IV PUSH Q6H PRN Itching Enoxaparin Sodium 40 mg 09/12/24 09:00 09/12/24 09:36 Enoxaparin 40 Mg/0.4 Ml Syringe SUB-Q 40 mg DAILY LEE Administration Escitalopram Oxalate 20 mg 09/12/24 09:00 09/12/24 09:36 Escitalopram Oxalate 10 Mg Tablet PO 20 mg DAILY LEE Administration Hydromorphone HCl 1 mg 09/11/24 14:06 Hydromorphone Hcl Inj (*Crx) 1 Mg/Ml Syr IV PUSH Q2H PRN Breakthrough Pain Rated 7-10 or NPO Hydromorphone HCl 0.5 mg 09/11/24 14:06 Hydromorphone Hcl Inj (*Crx) 1 Mg/Ml Syr IV PUSH Q2H PRN Breakthrough Pain Rated 4-6 or NPO Ibuprofen 800 mg in 200 mls @ 400 mls/hr 09/11/24 14:06 Caldolor 800 Mg/200 Ml IVPB Q6H PRN Breakthrough Pain Rated 1-3 or NPO Ibuprofen 800 mg 09/11/24 14:06 09/12/24 05:34 Ibuprofen 400 Mg Tablet PO 800 mg Q8HR LEE Administration Levothyroxine Sodium 112 mcg 09/12/24 06:30 09/12/24 05:34 Levothyroxine Sodium 112 Mcg Tablet PO 112 mcg DAILY@0630 [facility] Administration Magnesium Oxide 200 mg 09/11/24 21:00 09/11/24 21:43 Magnesium Oxide 200 Mg Tablet PO 10/11/24 20:59 200 mg HS [facility] Administration Naloxone HCl 0.1 mg 09/11/24 14:06 Naloxone Hcl 0.4 Mg/Ml Vial IV PUSH Q2M PRN Opiate Reversal Non-Formulary Medication 40 mg 09/13/24 09:00 Esomeprazole Magnesium [Nexium] PO 10/13/24 08:59 DAILY [facility] Ondansetron HCl 4 mg 09/11/24 14:06 Ondansetron Inj 4 Mg/2 Ml Vial IV PUSH Q4H PRN Nausea And Vomiting Oxycodone/Acetaminophen 1 tablet 09/11/24 14:06 Oxycodone/Acetaminophen (*Crx) 5-325 Mg Tablet PO Q4H PRN Pain Rated 4-6 Oxycodone/Acetaminophen 1 tab 09/11/24 14:06 Oxycodone/Acetaminophen (*Crx) 10-325 Mg Tablet PO Q6H PRN Pain Rated 7-10 Pantoprazole Sodium 40 mg 09/12/24 09:00 09/12/24 09:36 Pantoprazole 40 Mg Tablet PO 40 mg QAM LEE Administration Polyethylene Glycol 17 gm 09/12/24 09:00 09/12/24 09:41 Polyethylene Glycol 3350 17 Gm Powd.Pack PO Not Given QAM LEE Labs Labs: Laboratory Results - last 24 hr 09/12/24 06:01 WBC 6.4 RBC 3.95 L Hgb 11.6 L Hct 37.2 MCV 94.2 MCH 29.4 MCHC 31.2 L RDW 13.0 Plt Count 225 MPV 10.7 H Sodium 135 L Potassium 3.7 Chloride 105 Carbon Dioxide 25 Anion Gap 5 BUN 10 Creatinine 0.89 Estim Creat Clear Calc 104 Estimated GFR > 60 Glucose 99 Calcium 8.8
--- NOTE | 2024-09-12 11:32 | P.PNGS_ITS ---
Progress Note: A&P Assessment and Plan (1) Encounter for follow-up examination after completed treatment for conditions other than malignant neoplasm: Code(s): Z09 - Encounter for follow-up examination after completed treatment for conditions other than malignant neoplasm Status: Acute Assessment and Plan: * Pain control adequate for discharge home today. Discussed discharge instructions with patient. F/u in office in 2 weeks. (2) Other specified postprocedural states: Code(s): Z98.890 - Other specified postprocedural states Status: Acute Subjective Subjective Date/Time Seen: 09/12/24 11:32 Interval history: Pain control improved this AM. Mostly experiences pain with movement or coughing. Tolerating diet. Exam GI: Inspection: non-distended and incision (intact with glue) GI Palp: Yes Soft to palpation, Yes Tenderness to palpation present (GI) (at hernia repair site) and No Guarding due to palpation present (GI) Percussion: Yes normal to percussion Auscultation: normal bowel sounds Objective Data Vital Signs Vital Signs: Vital Signs - 24 hr 09/11/24 11:45 09/11/24 12:00 09/11/24 12:30 Temperature Pulse Rate 102 H 95 107 H Respiratory Rate 14 14 18 Blood Pressure 144/85 H 133/85 129/83 Pulse Oximetry 97 96 97 Oxygen Delivery Nasal Cannula Nasal Cannula Nasal Cannula Oxygen Flow Rate 2 2 2 09/11/24 12:45 09/11/24 13:00 09/11/24 13:30 Temperature Pulse Rate 103 H 103 H 91 Respiratory Rate 15 14 14 Blood Pressure 144/78 H 143/90 H 131/86 Pulse Oximetry 98 97 98 Oxygen Delivery Nasal Cannula Nasal Cannula Nasal Cannula Oxygen Flow Rate 2 2 2 09/11/24 14:00 09/11/24 14:06 09/11/24 14:21 Temperature 97.6 F 97.7 F Pulse Rate 108 H 65 81 Respiratory Rate 16 16 16 Blood Pressure 137/70 136/86 151/92 H Pulse Oximetry 95 95 97 Oxygen Delivery Room Air Oxygen Flow Rate 09/11/24 14:51 09/11/24 14:51 09/11/24 15:51 Temperature 97.5 F L 97.5 F L Pulse Rate 84 84 Respiratory Rate 18 18 Blood Pressure 151/81 H 151/81 H Pulse Oximetry 98 98 Oxygen Delivery Room Air Oxygen Flow Rate 09/11/24 21:00 09/11/24 21:32 09/12/24 00:53 Temperature 99.0 F 96.6 F L Pulse Rate 99 86 Respiratory Rate 17 16 Blood Pressure 136/62 151/93 H Pulse Oximetry 95 96 Oxygen Delivery Room Air Oxygen Flow Rate 09/12/24 04:42 09/12/24 07:51 Temperature 96.5 F L 97.5 F L Pulse Rate 66 77 Respiratory Rate 16 18 Blood Pressure 127/89 142/94 H Pulse Oximetry 95 95 Oxygen Delivery Oxygen Flow Rate Intake/Output Intake/Output: Intake & Output 09/09/24 09/10/24 09/11/24 09/12/24 23:59 23:59 23:59 23:59 Intake Total 1190 1476 Balance 1190 1476 Meds/Results Medications: Active Medications Generic Name Dose Route Start Last Admin Trade Name Freq PRN Reason Stop Dose Admin Acetaminophen 650 mg 09/11/24 14:06 09/12/24 05:34 Acetaminophen 325 Mg Tablet PO 650 mg Q6HR LEE Administration Albuterol 2 puff 09/11/24 14:06 Albuterol Sulfate (*Sp) Aerosol 1 Puff INHALATION Q4H PRN bronchospasm Diphenhydramine HCl 25 mg 09/11/24 14:06 Diphenhydramine Hcl Inj 50 Mg/Ml Vial IV PUSH Q6H PRN Itching Enoxaparin Sodium 40 mg 09/12/24 09:00 09/12/24 09:36 Enoxaparin 40 Mg/0.4 Ml Syringe SUB-Q 40 mg DAILY LEE Administration Escitalopram Oxalate 20 mg 09/12/24 09:00 09/12/24 09:36 Escitalopram Oxalate 10 Mg Tablet PO 20 mg DAILY LEE Administration Hydromorphone HCl 1 mg 09/11/24 14:06 Hydromorphone Hcl Inj (*Crx) 1 Mg/Ml Syr IV PUSH Q2H PRN Breakthrough Pain Rated 7-10 or NPO Hydromorphone HCl 0.5 mg 09/11/24 14:06 Hydromorphone Hcl Inj (*Crx) 1 Mg/Ml Syr IV PUSH Q2H PRN Breakthrough Pain Rated 4-6 or NPO Ibuprofen 800 mg in 200 mls @ 400 mls/hr 09/11/24 14:06 Caldolor 800 Mg/200 Ml IVPB Q6H PRN Breakthrough Pain Rated 1-3 or NPO Ibuprofen 800 mg 09/11/24 14:06 09/12/24 05:34 Ibuprofen 400 Mg Tablet PO 800 mg Q8HR LEE Administration Levothyroxine Sodium 112 mcg 09/12/24 06:30 09/12/24 05:34 Levothyroxine Sodium 112 Mcg Tablet PO 112 mcg DAILY@0630 [facility] Administration Magnesium Oxide 200 mg 09/11/24 21:00 09/11/24 21:43 Magnesium Oxide 200 Mg Tablet PO 10/11/24 20:59 200 mg HS LEE Administration Naloxone HCl 0.1 mg 09/11/24 14:06 Naloxone Hcl 0.4 Mg/Ml Vial IV PUSH Q2M PRN Opiate Reversal Ondansetron HCl 4 mg 09/11/24 14:06 Ondansetron Inj 4 Mg/2 Ml Vial IV PUSH Q4H PRN Nausea And Vomiting Oxycodone/Acetaminophen 1 tablet 09/11/24 14:06 Oxycodone/Acetaminophen (*Crx) 5-325 Mg Tablet PO Q4H PRN Pain Rated 4-6 Oxycodone/Acetaminophen 1 tab 09/11/24 14:06 Oxycodone/Acetaminophen (*Crx) 10-325 Mg Tablet PO Q6H PRN Pain Rated 7-10 Pantoprazole Sodium 40 mg 09/12/24 09:00 09/12/24 09:36 Pantoprazole 40 Mg Tablet PO 40 mg QAM [facility] Administration Polyethylene Glycol 17 gm 09/12/24 09:00 09/12/24 09:41 Polyethylene Glycol 3350 17 Gm Powd.Pack PO [facility] Labs: Laboratory Results - last 24 hr 09/12/24 06:01 WBC 6.4 RBC 3.95 L Hgb 11.6 L Hct 37.2 MCV 94.2 MCH 29.4 MCHC 31.2 L RDW 13.0 Plt Count 225 MPV 10.7 H Sodium 135 L Potassium 3.7 Chloride 105 Carbon Dioxide 25 Anion Gap 5 BUN 10 Creatinine 0.89 Estim Creat Clear Calc 104 Estimated GFR > 60 Glucose 99 Calcium 8.8
[2024-09-12 11:37] VITALS: BP 148/83; PULSE 83; RESP 18; TEMP 36.2; O2SAT 97
[2024-09-12 15:42] VITALS: BP 134/83; PULSE 88; RESP 18; TEMP 36.4; O2SAT 96
== END 2024-09-12 15:30 | disposition home or self-care (01) ==
LOC: ANHSURGERY 09:42 → ANH3MEDSUR 14:17
PROVIDERS: PCP Family Medicine; Visit Provider Surgery
PROC: (CPT 49593; principal; 2024-09-11 07:30)
DX: K43.2 Incisional hernia without obstruction or gangrene (principal); D64.9 Anemia, unspecified; I10 Essential (primary) hypertension; E03.9 Hypothyroidism, unspecified; J45.909 Unspecified asthma, uncomplicated; F41.9 Anxiety disorder, unspecified; K82.9 Disease of gallbladder, unspecified; Q25.6 Stenosis of pulmonary artery; F12.90 Cannabis use, unspecified, uncomplicated; E66.01 Morbid (severe) obesity due to excess calories; Z68.42 Body mass index [BMI] 45.0-49.9, adult; Z79.51 Long term (current) use of inhaled steroids; Z98.890 Other specified postprocedural states; Z90.49 Acquired absence of other specified parts of digestive tract; Z87.891 Personal history of nicotine dependence
CPT/HCPCS: 49593; S2900; 36415; 80048; 85027; A9270; C1781; J0690; J1100; J1171; J1650; J1885; J2250; J2405; J2704; J3010; J7120

== ENCOUNTER 2024-12-06 09:10 | Outpatient (CLI) | payer OTHER, SELFPAY ==
--- OUTSIDE RECORDS SUMMARY | 2024-12-06 09:20 | XMS_ITS | Clinical Summary ---
Author Organization [facility] Address [address] [place] [address] Care Team Providers Care Stick Welder Name Role Phone Dalton Pierce MD Primary Care Provider [phone] Source Comments [facility] [employer],non-owned Affiliates and Associated Physician Practices is amultiple site organization consisting of ambulatory clinics and hospital sitesin [place], [place], [place] and [place]. This disclosure is being madepursuant to the Care Everywhere program and may not contain all information available regarding this patient. Last updated 17.[facility] Allergies No known active allergies Medications * [...] daily. Active ciclesonide (OMNARIS) 50 MCG/ACT SUSP Braggs 2 Sprays into each nostril daily. 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
--- OUTSIDE RECORDS SUMMARY | 2024-12-06 09:20 | XMS_ITS | Clinical Summary ---
Author Organization [facility] al Address [address] [place] [address] Care Team Providers Care Manufacturing Lab Technician Name Role Phone Brionna Pierce MD Primary Care Provider + Nigel Cho MD Unavailable [phone] Rogelio Candelaria MD Unavailable [phone] Fernando Serrano MD Unavailable [phone] Macey Smith MD PhD Unavailable [phone] Allergies Active Allergy Reactions Criticality Noted Date [...] mcg capsule Take 112 mcg by mouth electric cell tender before breakfast Active magnesium oxide (MAG-OX) 250 mg (150.8 mg elemental) tabletIndications: hypomagnesemia 250 mg daily Ac tive clindamycin phos-skin clnsr 19 1 % kit Apply topically Active dapsone (Aczone) 7.5 % gel with pump Apply topically daily Active tretinoin (RETIN-A) 0.025 % gel Apply topically nightly Active [facility] albuterol HFA, PROAIR, (2019--/TV [id number]) inhaler Inhale as needed 1 Active loratadine-pseudoe [...] on file Legal Sex Female 3:23 AM 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 Gender Identity Not on file Sexual Orientation Not on file Obstetrics History Last Filed Vital Signs Vital Sign Reading Time Taken Comments Blood Pressure 172/106 03/04/2021 11:19 AM DRY CLEANING ATTENDANT Pulse 97 03/04/2021 11:19 AM DRY CLEANING ATTENDANT Temperature 36.5 C (97.7 F) 03/04/2021 11:19 AM DRY CLEANING ATTENDANT Respiratory Rate 16 03/04/2021 11:1 9 AM DRY CLEANING ATTENDANT Oxygen Saturation 99% 03/04/2021 11: 19 AM DRY CLEANING ATTENDANT Inhaled Oxygen Concentration - - Weight 121.9 kg (268 lb 12.8 oz) 2020 11:19 AM DRY CLEANING ATTENDANT Height 164.5 cm (5' 4.76) 03/04/2021 1 1:19 AM DRY CLEANING ATTENDANT Body Mass Index 45.06 03/04/2021 11:19 AM DRY CLEANING ATTENDANT Plan of Treatment Not on file Insurance [place]PO [place] Care Teams Manufacturing Lab Technician Relationship Specialty Start Date End Date Brionna Pierce MD PCP - General 05/04/19 Nigel Cho MD [address] [place] [id number] Referring Physician Hematology 01/13/21 Rogelio Candelaria MD [address] [facility] [address] [place], [place] [id number] Referring Physician Vascular Surgery 01/13/21 Fernando Serrano MD [address] [facility] MEDICAL [facility], [facility] [address] [place] [address] Referring Physician Medical Oncology 02/01/21 Macey Smith MD PhD [address] [facility], [facility] [address] [place] [address] Consulting Physician Medical Oncology 02/01/21
--- OUTSIDE RECORDS SUMMARY | 2024-12-06 09:20 | XMS_ITS | Clinical Summary ---
Author Organization [facility] Address [address] [place] [address] Care Team Providers Care Truss Puller Helper Name Role Phone Brionna Pierce MD Primary Care Provider [phone] Medications VENTOLIN HFA 90 mcg/actuation inhaler INHALE 2 PUFFS EVERY 4 HOURS NEEDED 1 Active escitalopram oxalate (LEXAPRO) 20 mg tablet TAKE 1 TABLET BY MOUTH EVERY DAY 1 Active levothyroxine 112 mcg tablet Take 112 mcg by mouth daily. 1 Active mometasone (NASONEX) 50 mcg/actuation [place], Non-Aerosol daily. Active mometasone (Asmanex Twisthaler) 220 [...] (1 of 3 - 19+ 3-dose series) 08/2011 HPV/Cotest (21-29) 2013 HPV VACCINES (1 - 3-dose SCDM series) 2019 CERVICAL CANCER SCREENING 2022 HPV/Cotest (30-65) 2022 PAP SMEAR 2022 INFLUENZA VACCINE (#1) 2024 Insurance BLUE ACCESS/TRUE BLUE PPO Care Teams Truss Puller Helper Relationship Specialty Start Date End Date Brionna Pierce MD PCP - General Family Practice 10/08/20
[2024-12-06 13:00] LABS: Hemoglobin A1C 5.3 % (<5.7)
[2024-12-06 14:14] LABS: Alanine Aminotransferase 82 U/L (6-35); Albumin Level 4.3 g/dL (3.5-5.1); Alkaline Phosphatase 65 U/L (38-126); Anion Gap 5 mmol/L (4-12); Aspartate Amino Transferase 61 U/L (14-36); Bilirubin,Total 0.7 mg/dL (0.2-1.3); Blood Urea Nitrogen 10 mg/dL (7-17); Calcium 9.4 mg/dL (8.4-10.2); Carbon Dioxide 28 mmol/L (22-30); Chloride 104 mmol/L (98-107); Cholesterol 221 mg/dL (0-200); Estimated Glomerular Filt Rate > 60; Glucose 97 mg/dL (65-110); HDL Direct 54 mg/dL; Potassium 4.3 mmol/L (3.4-5.0); Sodium 137 mmol/L (137-145); Total Protein 7.5 g/dL (6.3-8.2); Triglycerides 121 mg/dL (<150)
[2024-12-06 14:46] LABS: Thyroid Stimulating Hormone 2.250 uIU/mL (0.465-4.680)
== END 2024-12-06 09:11 | disposition home or self-care (01) ==
LOC: ANHGOSHLAB 09:12
PROVIDERS: PCP Family Medicine; Visit Provider Student in an Organized Health Care Education/Training Program
DX: E55.9 Vitamin D deficiency, unspecified (principal); J45.20 Mild intermittent asthma, uncomplicated; K21.9 Gastro-esophageal reflux disease without esophagitis; E03.9 Hypothyroidism, unspecified; E66.01 Morbid (severe) obesity due to excess calories; E78.2 Mixed hyperlipidemia; Z68.42 Body mass index [BMI] 45.0-49.9, adult
CPT/HCPCS: 36415; 80053; 80061; 82306; 83036; 84443

== ENCOUNTER 2024-12-16 09:08 | Outpatient (CLI) | payer OTHER, SELFPAY ==
--- OUTSIDE RECORDS SUMMARY | 2024-12-16 09:36 | XMS_ITS | Clinical Summary ---
Author Organization [facility] al Address [address] [place] [address] Care Team Providers Care Footwear Sales Leader Name Role Phone Brionna Pierce MD Primary Care Provider + Nigel Cho MD Unavailable [phone] Rogelio Candelaria MD Unavailable [phone] Fernando Serrano MD Unavailable [phone] Macey Smith MD PhD Unavailable [phone] Allergies Active Allergy Reactions Criticality Noted Date [...] mcg capsule Take 112 mcg by mouth pararescue craftsman before breakfast Active magnesium oxide (MAG-OX) 250 mg (150.8 mg elemental) tabletIndications: hypomagnesemia 250 mg daily Ac tive clindamycin phos-skin clnsr 19 1 % kit Apply topically Active dapsone (Aczone) 7.5 % gel with pump Apply topically daily Active tretinoin (RETIN-A) 0.025 % gel Apply topically nightly Active [facility] albuterol HFA, PROAIR, (2019--/TV [id number]) inhaler Inhale as needed 1 Active loratadine-pseudoe [...] Date Comments Asthma Anxiety Depression Allergies Hypothyroid Herrick-Schlatter's disease Pulmonary stenosis Hypoglycemia OCD (obsessive compulsive [...] on file Legal Sex Female 3:23 AM SEO MARKETING SPECIALIST Gender Identity Not on file Sexual Orientation Not on file Obstetrics History Last Filed Vital Signs Vital Sign Reading Time Taken Comments Blood Pressure 172/106 03/04/2021 11:19 AM SEO MARKETING SPECIALIST Pulse 97 03/04/2021 11:19 AM SEO MARKETING SPECIALIST Temperature 36.5 C (97.7 F) 03/04/2021 11:19 AM SEO MARKETING SPECIALIST Respiratory Rate 16 03/04/2021 11:1 9 AM SEO MARKETING SPECIALIST Oxygen Saturation 99% 03/04/2021 11: 19 AM SEO MARKETING SPECIALIST Inhaled Oxygen Concentration - - Weight 121.9 kg (268 lb 12.8 oz) 2020 11:19 AM SEO MARKETING SPECIALIST Height 164.5 cm (5' 4.76) 03/04/2021 1 1:19 AM SEO MARKETING SPECIALIST Body Mass Index 45.06 03/04/2021 11:19 AM SEO MARKETING SPECIALIST Plan of Treatment Not on file Insurance [place] Care Teams Footwear Sales Leader Relationship Specialty Start Date End Date Brionna Pierce MD PCP - General 05/04/19 Nigel Cho MD [address] [place] [phone] Referring Physician Hematology 01/13/21 Rogelio Candelaria MD [address] [facility] [address] [place], [place] [phone] Referring Physician Vascular Surgery 01/13/21 Fernando Serrano MD [address] [facility] MEDICAL [facility], [facility] [address] [place] [address] Referring Physician Medical Oncology 02/01/21 Macey Smith MD PhD [address] [facility], [facility] [address] [place] [address] Consulting Physician Medical Oncology 02/01/21
--- OUTSIDE RECORDS SUMMARY | 2024-12-16 09:36 | XMS_ITS | Clinical Summary ---
Author Organization [facility] Address [address] [place] [address] Care Team Providers Care Floral Artist Name Role Phone Dalton Pierce MD Primary Care Provider [phone] [facility],non-owned Affiliates and Associated Physician Practices is amultiple site organization consisting of ambulatory clinics and hospital sitesin [place], [place], [place] and [place]. This disclosure is being madepursuant to the Care Everywhere program and may not contain all information available regarding this patient. Last updated 17.[facility] Allergies No known active allergies Medications * [...] daily. Active ciclesonide (OMNARIS) 50 MCG/ACT SUSP [place] 2 Sprays into each nostril daily. Active [...] on file Legal Sex Female 5:39 AM OPERATOR CATALYST CONCENTRATION Gender Identity Not on file Sexual Orientation [...] complete this topic Insurance JUDY Care Teams Floral Artist Relationship Specialty Start Date End Date Dalton Pierce MD [address] [place] [id number] PCP - General 08/07/09
--- OUTSIDE RECORDS SUMMARY | 2024-12-16 09:36 | XMS_ITS | Clinical Summary ---
Author Organization [facility] Address [address] [place] [address] Care Team Providers Care Science Manager Name Role Phone Brionna Pierce MD Primary Care Provider [phone] Medications VENTOLIN HFA 90 mcg/actuation inhaler INHALE 2 PUFFS EVERY 4 HOURS NEEDED 1 Active escitalopram oxalate (LEXAPRO) 20 mg tablet TAKE 1 TABLET BY MOUTH EVERY DAY 1 Active levothyroxine 112 mcg tablet Take 112 mcg by mouth daily. 1 Active mometasone (NASONEX) 50 mcg/actuation [place], Non-Aerosol daily. Active mometasone (Asmanex Twisthaler) 220 [...] Insurance BLUE ACCESS/TRUE BLUE PPO Care Teams Science Manager Relationship Specialty Start Date End Date Brionna Pierce MD PCP - General Family Practice 10/08/20
[2024-12-16 13:07] LABS: Alanine Aminotransferase 44 U/L (6-35); Albumin Level 4.3 g/dL (3.5-5.1); Alkaline Phosphatase 64 U/L (38-126); Anion Gap 11 mmol/L (4-12); Aspartate Amino Transferase 51 U/L (14-36); Bilirubin,Total 0.9 mg/dL (0.2-1.3); Blood Urea Nitrogen 14 mg/dL (7-17); Calcium 9.1 mg/dL (8.4-10.2); Carbon Dioxide 24 mmol/L (22-30); Chloride 103 mmol/L (98-107); Cholesterol 211 mg/dL (0-200); Estimated Glomerular Filt Rate > 60; Glucose 92 mg/dL (65-110); HDL Direct 50 mg/dL; Potassium 3.7 mmol/L (3.4-5.0); Sodium 138 mmol/L (137-145); Total Protein 7.4 g/dL (6.3-8.2); Triglycerides 179 mg/dL (<150)
[2024-12-16 13:39] LABS: Negative Monotest Control Negative (Negative); Positive Monotest Control Positive (Positive); Thyroid Stimulating Hormone 6.420 uIU/mL (0.465-4.680)
[2024-12-16 13:48] LABS: Hepatitis B Surface Antigen Negative (Negative)
[2024-12-16 13:53] LABS: HAV RESULT Negative (Negative); Hepatitis B Core IgM Result Negative (Negative)
[2024-12-16 13:55] LABS: Hemoglobin A1C 5.0 % (<5.7)
== END 2024-12-16 09:09 | disposition home or self-care (01) ==
LOC: ANHGOSHLAB 09:10
PROVIDERS: PCP Family Medicine; Visit Provider Student in an Organized Health Care Education/Training Program
DX: E03.9 Hypothyroidism, unspecified (principal); R79.89 Other specified abnormal findings of blood chemistry; E66.01 Morbid (severe) obesity due to excess calories; Z68.42 Body mass index [BMI] 45.0-49.9, adult; E78.2 Mixed hyperlipidemia; E55.9 Vitamin D deficiency, unspecified; K21.9 Gastro-esophageal reflux disease without esophagitis; J45.20 Mild intermittent asthma, uncomplicated
CPT/HCPCS: 36415; 80053; 80061; 80074; 82306; 83036; 84443; 86308